=== PATIENT | female | born 2000 | race Caucasian/White ===

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

== ENCOUNTER 2025-08-24 16:58 | Inpatient (IN) ==
[2025-08-24 18:34] LABS: Hematocrit (blood only) 36.3 % (37.0-47.0); Hemoglobin 11.9 g/dL (12.0-16.0); Immature Granulocytes # (auto) 0.03 K/uL (0.01-0.20); Immature Granulocytes % (auto) 0.2 %; Mean Corpuscular Hemoglobin 29.2 pg (25.0-34.0); Mean Corpuscular Volume 89.0 fL (80.0-100.0); Platelet Count 251 K/uL (130-400); RDW Standard Deviation 42.8 fL (36.4-46.3); Red Blood Count 4.08 M/uL (4.20-5.40); White Blood Count 14.94 K/ul (4.8-10.8)
[2025-08-24 18:48] LABS: Acetaminophen < 3 ug/ml (10-30); Salicylate < 3.0 mg/dl (3.0-30)
[2025-08-24 18:51] LABS: Alanine Aminotransferase 11 U/L (7-52); Albumin Globulin Ratio 0.8 (0.9-2); Albumin Level 3.4 gm/dl (3.4-5.0); Alkaline Phosphatase 95 U/L (34-104); Anion Gap 6 (3-11); Bilirubin,Total 0.2 mg/dl (0.2-1.0); Blood Urea Nitrogen 12 mg/dl (6-23); Calcium 9.0 mg/dl (8.6-10.3); Carbon Dioxide 27 mmol/L (21-32); Chloride 103 mmol/L (98-107); Globulin 4.2 gm/dl (2.5-4.0); Glucose 80 mg/dl (70-99(Fasting)); Potassium 3.6 mmol/L (3.5-5.1); Sodium 136 mmol/L (136-145); Total Protein 7.6 gm/dl (6.0-8.3)
[2025-08-24 18:55] LABS: Pregnancy Test, Serum Negative (Negative)
[2025-08-24 19:06] LABS: Thyroid Stimulating Hormone 1.885 uIu/ml (0.300-4.500)
[2025-08-24 19:07] LABS: Appearance Urine Clear (Clear); Bacteria Urine Automated None Seen (None Seen); Cast Urine Automated 0-2 /lpf (0-2); Glucose Urine UA Negative (Negative); RBC Urine Automated 0-2 /hpf (0-2); WBC Urine Automated 0-5 /hpf (0-5)
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
[2025-08-24 20:20] LABS: Amphetamines+Metham, Urine Neg (Neg); MDMA (Ecstacy), Urine Neg (Neg); Marijuana, Urine Neg (Neg)
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
[2025-08-24] MEDS ORDERED: lamoTRIgine 100 MG TAB PO SCH (22:45)
[2025-08-24] MEDS: ARIPiprazole 15 MG TAB PO STA (23:04)
[2025-08-24] MEDS: lamoTRIgine 100 MG TAB PO STA (23:04)
[2025-08-25] MEDS: ONDANSETRON 4 MG OD TAB PO STA (02:28)
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
[2025-08-25] MEDS ORDERED: BISMUTH SUBSALICYLATE 262 MG CHEW PO PRN (07:53)
[2025-08-25] MEDS ORDERED: SODIUM CHLORIDE 0.65% NA SOLN 45 ML (OCEAN) PRN (07:53)
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
[2025-08-25] MEDS ORDERED: ARIPiprazole 15 MG TAB PO SCH (09:00)
[2025-08-25] MEDS: lamoTRIgine 25 MG TAB PO SCH (21:35)
[2025-08-26] MEDS: ARIPiprazole 15 MG TAB PO SCH ×2 (08:10→21:29)
[2025-08-26 08:39] LABS: Cholesterol 163.0 mg/dl (0-200); HDL Cholesterol 51.0 mg/dl; Triglycerides 116.0 mg/dl (0-150)
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
[2025-08-26 09:20] LABS: Hemoglobin A1C 5.7 % (4.5-5.6)
[2025-08-27] MEDS: CHOLECALCIFEROL 125 MCG (5,000 UNITS) TAB PO SCH (08:24)
[2025-08-27] MEDS: ACETAMINOPHEN 325 MG TAB PO PRN (08:24)
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
[2025-08-27] MEDS: ARIPiprazole 15 MG TAB PO SCH (21:01)
[2025-08-27] MEDS: lamoTRIgine 25 MG TAB PO SCH (21:01)
--- NOTE | 2025-08-28 15:42 | Psychiatric Progress Note ---
Date of Service August 28, 2025 Impression / Recommendations Impression SUMMER SINGH is a 25-year-old woman who currently lives in [place] in an [facility] [place] half[facility]way, has a history of ASD with intellectual disability, mood disorder, PTSD, craniofacial syndrome with a history of multiple prior psychiatric hospitalizations as well as history of self-harm, suicide attempts, and behavioral dysregulation and was admitted on 08/25/25 07:53 on a 302 involuntary commitment for aggressive behavior toward staff, self-harm and disorganization in the context of recent medication non-adherence with lamictal and medication changes. Now on 303 commitment as of 08/27/2025. Diagnostically consistent with unspecified mood disorder with differential including depression vs bipolar disorder with increased mood lability and irritability in context of recent medication non-adherence with lamictal vs exacerbation of longstanding emotional dysregulation & self-injurious and impulsive aggressive behaviors from ASD which typically worsen with limit setting vs premenstrual dysphoric disorder given report that symptoms tend to worsen prior to menses but also with evidence of increasing symptoms over multiple weeks. Also possible that stimulant addition caused worsening of behaviors though this seems less likely as methylphenidate was started in April with last dose increase in May per PDMP. Would also wonder about cramps or other physical symptoms such as constipation increasing episodes of irritability and behavioral dysregulation, especially if she struggles to identify these somatic experiences or communicate them. A: Patient is a limited historian however endorses an improvement in anxiety symptoms and resolution of SI. Continues to be disruptive at the nurses station and in public areas likely due to emotional dysregulation; likely this behavior has been chronic and is related to personality elements. Tolerating her medications well including recent initiation of clonidine and demonstrating improved sleep. Will work with her home facility to plan discharge. [facility]PR due to recent aggression and behavioral dysregulation Overall, I spent a total of 45 minutes on this case including meeting with the patient, reviewing the chart, nursing report, multidisciplinary team meeting, orders, and documentation. (1) Aggressive behavior: (2) Suicidal ideation: (3) Mood disorder: (4) Autism spectrum disorder with accompanying intellectual disability without language impairment, requiring support: (5) Trauma and stressor-related disorder: Plan 08/28/2025: Continue medications and treatment plan 08/27/2025: -303 commitment granted -Start metformin ER 500mg daily with dinner 08/26/2025: -Start Trileptal 300mg HS -Start Vit D -303 commitment hearing tomorrow 08/25/2025: The patient was [facility] ([facility] inpatient mental health unit) on q15 min checks (behavioral with suicide precautions) for safety. The patient will participate in group, recreational, and milieu therapies and will be offered additional individual and family sessions as clinically appropriate. -Start clonidine 0.1mg HS -Continue abilify 30mg daily -Continue lamictal but now at 25mg HS due to recent non-adherence of unknown duration but seems to be for >4 days based on report of many pills hoarded -Olanzapine 5mg BID po prn for agitation -Fasting lipid panel, HbA1c, Vit D tomorrow AM -Monitor for somatic symptoms of constipation, cramping, pain and offer prn medications as neded -Given the holiday we may need to pursue 303 commitment earlier than usual if [facility] offices will be closed following . -Requesting records from outpatient psychiatry office to review past mood stabilizer and SSRI trials as possible fluoxetine could help with PMDD and would prefer to consider alternative to lamictal given high risks with non-adherence or intermittent adherence -Suicide and homicide precautions -SW to gather collateral and clarify her outpatient supports Inventory Assets Strengths: supportive relationships, resilient Needs: safety and stabilization, medication adjustment, additional coping skills, increased outpatient services Suicide Risk Level Suicide Risk Level: Moderate (q15 min suicide checks) (recent self-harm and escalating behavioral dysregulation but showing slightly better emotional regulation, currently denies SI and reports feeling safe in the hospital and states comfort with asking staff for support if needed) Risk Factors Assessment Male: No : Yes Do You Have Access To A Gun?: No Health Problems: No Mental Health Diagnoses: Yes Substance Use Disorders: No Previous Attempt: Yes Previous Psychiatric Hospitalization: Yes Protective Factors Assessment Employed: No Supportive Family: Yes Interval History Identifying Information SUMMER SINGH is a 25-year-old woman who currently lives in [place] in an [facility] [place] half-way, has a history of ASD with intellectual disability, mood disorder, PTSD, craniofacial syndrome with a history of multiple prior psychiatric hospitalizations as well as history of self-harm, suicide attempts, and behavioral dysregulation and was admitted on 08/25/25 07:53 on a 302 involuntary commitment for aggressive behavior toward staff, self-harm and disorganization in the context of recent medication non-adherence with lamictal and medication changes. Chief Complaint emotional dysregulation Review of Systems Sleep Information Total Hours of Sleep: 6 Meal Information Percent Meal Consumed - Breakfast: 100 Percent Meal Consumed - Lunch: 75 Percent Meal Consumed - Dinner: 80 Subjective Subjective Patient was seen & assessed and interval progress reviewed with treatment team nursing and social work On interview patient is tangential and requires redirection. Initially reluctant to speak to this policy writer typist due to fears of racism. Recounts being upset when playing video games and her Xbox crashed. She was frustrated and had an argument with the half-way staff. She kicked the acuna and got a knife from the kitchen which broke and she accidentally cut herself and was bleeding. Reports trying to clean up the mess and frantically get help. Unable to tell me further of what brought her to the hospital. Currently denies SI or thoughts of self-harm. Reports sleeping well and has a regular bowel movement. Endorses less anxious ruminations and feels more calm. Tolerating clonidine well and rates it as effective. Reports some somatic symptoms of a stabbing pain in her chest and low back pain which has both been chronic. Reports a plan to return to her half-way. Physical Exam Mental Examination Appearance: Disheveled Eye Contact: Maintains Eye Contact Motor Behavior: Unremarkable Speech: Tangential, Loud and Circumstantial Mood: Irritable Affect: Irritable Thought Process: Intact Thought Content: Tangential Hallucinations: None Insight: Poor Judgement: Poor Vital Signs (Past 24 Hours) Last Vital Signs Temp 35.5 C L 08/28/25 06:22 Pulse 59 L 08/28/25 06:22 Resp 19 08/28/25 06:22 BP 99/68 L 08/28/25 06:22 Pulse Ox 96 08/28/25 06:22 O2 Del Method Room Air 08/28/25 06:22 Results & Data ([facility]) Current Inpatient Medications Current Inpatient Medications: Current Inpatient Medications Acetaminophen (Acetaminophen 325 Mg Tab) 650 mg PO Q4H PRN PRN Reason: Headache or Minor Fever Stop: 09/24/25 07:52 Last Admin: 08/27/25 08:24 Dose: 650 mg Al Hydrox/Mg Hydrox/Simethicone (Aluminum/Magnesium Susp 30 Ml Udc) 30 ml PO Q4H PRN PRN Reason: GI Upset Stop: 09/24/25 07:52 Aripiprazole (Aripiprazole 15 Mg Tab) 30 mg PO PM PALAK Stop: 09/26/25 20:59 Last Admin: 08/27/25 21:01 Dose: 30 mg Bismuth Subsalicylate (Bismuth Subsalicylate 262 Mg Chew) 2 tab PO Q30M PRN PRN Reason: Loose Stool/Diarrhea Stop: 09/24/25 07:52 Clonidine HCl (Clonidine Hcl 0.1 Mg Tab) 0.1 mg PO HS PALAK Stop: 09/24/25 21:59 Last Admin: 08/27/25 21:01 Dose: 0.1 mg Hydroxyzine HCl (Hydroxyzine Hcl 25 Mg Tab) 50 mg PO HSZ PRN PRN Reason: Insomnia Stop: 09/24/25 07:52 Hydroxyzine HCl (Hydroxyzine Hcl 25 Mg Tab) 25 mg PO Q4H PRN PRN Reason: Anxiety Stop: 09/24/25 07:52 Last Admin: 08/28/25 12:35 Dose: 25 mg Lamotrigine (Lamotrigine 25 Mg Tab) 25 mg PO PM PALAK; Protocol Stop: 09/26/25 20:59 Last Admin: 08/27/25 21:01 Dose: 25 mg Magnesium Hydroxide (Magnesium Hydroxide Susp 30 Ml Udc) 30 ml PO DAILY PRN PRN Reason: Constipation Stop: 09/24/25 07:52 Metformin HCl (Metformin Hcl Er 500 Mg Tabcr) 500 mg PO DAILYBD PALAK Stop: 09/26/25 17:14 Last Admin: 08/27/25 17:27 Dose: 500 mg Miscellaneous (Ethynodiol Diac-Eth Estradiol (Kelnor)--Non-Formulary Medication) 1 each PO DAILY PALAK Stop: 09/27/25 08:59 Last Admin: 08/28/25 08:31 Dose: 1 each Olanzapine (Olanzapine 5 Mg Tablet) 5 mg PO BID PRN PRN Reason: Agitation Stop: 09/24/25 08:59 Oxcarbazepine (Oxcarbazepine 150 Mg Tablet) 300 mg PO PM PALAK Stop: 09/26/25 20:59 Last Admin: 08/27/25 21:00 Dose: 300 mg Sodium Chloride (Sodium Chloride 0.65% Na Soln 45 Ml ([place])) 1 - 2 sprays NA PRN PRN PRN Reason: Nasal Dryness/Congestion Stop: 09/24/25 07:52 Vitamin D (Cholecalciferol 125 Mcg (5,000 Units) Tab) 125 mcg PO QAM PALAK Stop: 09/26/25 08:59 Last Admin: 08/28/25 08:30 Dose: 125 mcg Mental Health & Subst Abuse Tx Psychiatrist Name of Psychiatrist: [address], [place] [address] Psychiatrist's Date Of Appointment With Psychiatric Provider: 11/05/25 Time of Appointment with Psychiatrist: 3pm Psychiatric Appointment Comment: In person Therapist Name of Therapist: Silviano Rodriguez Therapist's Date of Therapist Appointment: 09/04/25 Time of Therapist Appointment: 11AM Therapy Appointment Comment: In Person. [address], [place] [address]
--- NOTE | 2025-08-29 17:20 | Psychiatric Progress Note ---
Date of Service August 29, 2025 Impression / Recommendations Impression SUMMER SINGH is a 25-year-old woman who currently lives in [place] in an [facility], has a history of ASD with intellectual disability, mood disorder, PTSD, craniofacial syndrome with a history of multiple prior psychiatric hospitalizations as well as history of self-harm, suicide attempts, and behavioral dysregulation and was admitted on 08/25/25 07:53 on a 302 involuntary commitment for aggressive behavior toward staff, self-harm and disorganization in the context of recent medication non-adherence with lamictal and medication changes. Now on 303 commitment as of 08/27/2025. Diagnostically consistent with unspecified mood disorder with differential including depression vs bipolar disorder with increased mood lability and irritability in context of recent medication non-adherence with lamictal vs exacerbation of longstanding emotional dysregulation & self-injurious and impulsive aggressive behaviors from ASD which typically worsen with limit setting vs premenstrual dysphoric disorder given report that symptoms tend to worsen prior to menses but also with evidence of increasing symptoms over multiple weeks. Also possible that stimulant addition caused worsening of behaviors though this seems less likely as methylphenidate was started in April with last dose increase in May per PDMP. Would also wonder about cramps or other physical symptoms such as constipation increasing episodes of irritability and behavioral dysregulation, especially if she struggles to identify these somatic experiences or communicate them. A: Patient presents some irritability and agitation overnight requiring PRNs. Continues to be disruptive likely due to emotional dysregulation. Tolerating her medications well and demonstrating improved sleep and anxiety. Will work with home facility to plan transfer. [facility] due to recent aggression and behavioral dysregulation Overall, I spent a total of 25 minutes on this case including meeting with the patient, reviewing the chart, nursing report, multidisciplinary team meeting, orders, and documentation. (1) Aggressive behavior: (2) Suicidal ideation: (3) Mood disorder: (4) Autism spectrum disorder with accompanying intellectual disability without language impairment, requiring support: (5) Trauma and stressor-related disorder: Plan 08/29/2025: Continue medications and treatment plan 08/28/2025: Continue medications and treatment plan 08/27/2025: -303 commitment granted -Start metformin ER 500mg daily with dinner 08/26/2025: -Start Trileptal 300mg HS -Start Vit D -303 commitment hearing tomorrow 08/25/2025: The patient was admitted to the [facility] ([facility] inpatient mental health unit) on q15 min checks (behavioral with suicide precautions) for safety. The patient will participate in group, recreational, and milieu therapies and will be offered additional individual and family sessions as clinically appropriate. -Start clonidine 0.1mg HS -Continue abilify 30mg daily -Continue lamictal but now at 25mg HS due to recent non-adherence of unknown duration but seems to be for >4 days based on report of many pills hoarded -Olanzapine 5mg BID po prn for agitation -Fasting lipid panel, HbA1c, Vit D tomorrow AM -Monitor for somatic symptoms of constipation, cramping, pain and offer prn medications as neded -Given the holiday we may need to pursue 303 commitment earlier than usual if [facility] offices will be closed following . -Requesting records from outpatient psychiatry office to review past mood stabilizer and SSRI trials as possible fluoxetine could help with PMDD and would prefer to consider alternative to lamictal given high risks with non-adherence or intermittent adherence -Suicide and homicide precautions -SW to gather collateral and clarify her outpatient supports Inventory Assets Strengths: supportive relationships, resilient Needs: safety and stabilization, medication adjustment, additional coping skills, increased outpatient services Suicide Risk Level Suicide Risk Level: Moderate (q15 min suicide checks) (recent self-harm and escalating behavioral dysregulation but showing slightly better emotional regulation, currently denies SI and reports feeling safe in the hospital and states comfort with asking staff for support if needed) Risk Factors Assessment Male: No : Yes Do You Have Access To A Gun?: No Health Problems: No Mental Health Diagnoses: Yes Substance Use Disorders: No Previous Attempt: Yes Previous Psychiatric Hospitalization: Yes Protective Factors Assessment Employed: No Supportive Family: Yes Interval History Identifying Information SUMMER SINGH is a 25-year-old woman who currently lives in [place] in an [facility], has a history of ASD with intellectual disability, mood disorder, PTSD, craniofacial syndrome with a history of multiple prior psychiatric hospitalizations as well as history of self-harm, suicide attempts, and behavioral dysregulation and was admitted on 08/25/25 07:53 on a 302 involuntary commitment for aggressive behavior toward staff, self-harm and disorganization in the context of recent medication non-adherence with lamictal and medication changes. Chief Complaint Anxiety, behavioral disturbance Review of Systems Sleep Information Total Hours of Sleep: 9 Meal Information Percent Meal Consumed - Breakfast: 75 Percent Meal Consumed - Lunch: 75 Percent Meal Consumed - Dinner: 100 Subjective Subjective Patient was seen & assessed and interval progress reviewed with treatment team nursing and social work. Overnight rated mood 8 out of 10. Has been attending groups. Was anxious and agitated after difficult phone call with her mother last night, disruptive on the unit, and received as needed Vistaril which was effective. When seen today she reports doing well and has been journaling. Denies SI and appears future oriented. Anxious about potential discharge and feels she is not prepared. Having regular bowel movement. Discussing how she has met many people from around the world playing [employer]. Physical Exam Mental Examination Appearance: Disheveled Eye Contact: Maintains Eye Contact Motor Behavior: Unremarkable Speech: Tangential, Loud and Circumstantial Mood: Irritable Affect: Irritable Thought Process: Intact Thought Content: Tangential Hallucinations: None Insight: Poor Judgement: Poor Vital Signs (Past 24 Hours) Last Vital Signs Temp 36.3 C L 08/29/25 06:31 Pulse 54 L 08/29/25 06:31 Resp 16 08/29/25 06:31 BP 102/64 08/29/25 06:31 Pulse Ox 96 08/28/25 06:22 O2 Del Method Room Air 08/28/25 06:22 Results & Data ([facility]) Current Inpatient Medications Current Inpatient Medications: Current Inpatient Medications Acetaminophen (Acetaminophen 325 Mg Tab) 650 mg PO Q4H PRN PRN Reason: Headache or Minor Fever Stop: 09/24/25 07:52 Last Admin: 08/27/25 08:24 Dose: 650 mg Al Hydrox/Mg Hydrox/Simethicone (Aluminum/Magnesium Susp 30 Ml Udc) 30 ml PO Q4H PRN PRN Reason: GI Upset Stop: 09/24/25 07:52 Aripiprazole (Aripiprazole 15 Mg Tab) 30 mg PO PM PALAK Stop: 09/26/25 20:59 Last Admin: 08/28/25 21:08 Dose: 30 mg Bismuth Subsalicylate (Bismuth Subsalicylate 262 Mg Chew) 2 tab PO Q30M PRN PRN Reason: Loose Stool/Diarrhea Stop: 09/24/25 07:52 Clonidine HCl (Clonidine Hcl 0.1 Mg Tab) 0.1 mg PO HS PALAK Stop: 09/24/25 21:59 Last Admin: 08/28/25 21:09 Dose: 0.1 mg Hydroxyzine HCl (Hydroxyzine Hcl 25 Mg Tab) 50 mg PO HSZ PRN PRN Reason: Insomnia Stop: 09/24/25 07:52 Hydroxyzine HCl (Hydroxyzine Hcl 25 Mg Tab) 25 mg PO Q4H PRN PRN Reason: Anxiety Stop: 09/24/25 07:52 Last Admin: 08/28/25 12:35 Dose: 25 mg Lamotrigine (Lamotrigine 25 Mg Tab) 25 mg PO PM PALAK; Protocol Stop: 09/26/25 20:59 Last Admin: 08/28/25 21:09 Dose: 25 mg Magnesium Hydroxide (Magnesium Hydroxide Susp 30 Ml Udc) 30 ml PO DAILY PRN PRN Reason: Constipation Stop: 09/24/25 07:52 Metformin HCl (Metformin Hcl Er 500 Mg Tabcr) 500 mg PO DAILYBD PALAK Stop: 09/26/25 17:14 Last Admin: 08/29/25 17:13 Dose: 500 mg Miscellaneous (Ethynodiol Diac-Eth Estradiol ([place])--Non-Formulary Medication) 1 each PO DAILY PALAK Stop: 09/27/25 08:59 Last Admin: 08/29/25 09:08 Dose: 1 each Olanzapine (Olanzapine 5 Mg Tablet) 5 mg PO BID PRN PRN Reason: Agitation Stop: 09/24/25 08:59 Oxcarbazepine (Oxcarbazepine 150 Mg Tablet) 300 mg PO PM PALAK Stop: 09/26/25 20:59 Last Admin: 08/28/25 21:09 Dose: 300 mg Sodium Chloride (Sodium Chloride 0.65% Na Soln 45 Ml ([place])) 1 - 2 sprays NA PRN PRN PRN Reason: Nasal Dryness/Congestion Stop: 09/24/25 07:52 Vitamin D (Cholecalciferol 125 Mcg (5,000 Units) Tab) 125 mcg PO QAM PALAK Stop: 09/26/25 08:59 Last Admin: 08/29/25 09:08 Dose: 125 mcg Mental Health & Subst Abuse Tx Psychiatrist Name of Psychiatrist: [address] [address], [place] [address] Psychiatrist's Date Of Appointment With Psychiatric Provider: 2/4/26 Time of Appointment with Psychiatrist: 3pm Psychiatric Appointment Comment: In person Therapist Name of Therapist: Silviano Rodriguez Therapist's Date of Therapist Appointment: 09/04/25 Time of Therapist Appointment: 11AM Therapy Appointment Comment: In Person. [address] [place] [facility] [address]
--- NOTE | 2025-08-30 12:53 | Psychiatric Progress Note ---
Date of Service August 30, 2025 Impression / Recommendations Impression SUMMER SINGH is a 25-year-old woman who currently lives in [place] in an [facility] correction, has a history of ASD with intellectual disability, mood disorder, PTSD, craniofacial syndrome with a history of multiple prior psychiatric hospitalizations as well as history of self-harm, suicide attempts, and behavioral dysregulation and was admitted on 08/25/25 07:53 on a 302 involuntary commitment for aggressive behavior toward staff, self-harm and disorganization in the context of recent medication non-adherence with lamictal and medication changes. Now on 303 commitment as of 08/27/2025. Diagnostically consistent with unspecified mood disorder with differential including depression vs bipolar disorder with increased mood lability and irritability in context of recent medication non-adherence with lamictal vs exacerbation of longstanding emotional dysregulation & self-injurious and impulsive aggressive behaviors from ASD which typically worsen with limit setting vs premenstrual dysphoric disorder given report that symptoms tend to worsen prior to menses but also with evidence of increasing symptoms over multiple weeks. Also possible that stimulant addition caused worsening of behaviors though this seems less likely as methylphenidate was started in April with last dose increase in May per PDMP. Would also wonder about cramps or other physical symptoms such as constipation increasing episodes of irritability and behavioral dysregulation, especially if she struggles to identify these somatic experiences or communicate them. A: Patient presents a brief periods of emotional dysregulation and requires reassurance. Is tolerating the medications well with good sleep. Working with home facility plan transfer. [facility] due to recent aggression and behavioral dysregulation Overall, I spent a total of 25 minutes on this case including meeting with the patient, reviewing the chart, nursing report, multidisciplinary team meeting, orders, and documentation. (1) Aggressive behavior: (2) Suicidal ideation: (3) Mood disorder: (4) Autism spectrum disorder with accompanying intellectual disability without language impairment, requiring support: (5) Trauma and stressor-related disorder: Plan 08/30/2025: Continue medications and treatment plan 08/29/2025: Continue medications and treatment plan 08/28/2025: Continue medications and treatment plan 08/27/2025: -303 commitment granted -Start metformin ER 500mg daily with dinner 08/26/2025: -Start Trileptal 300mg HS -Start Vit D -303 commitment hearing tomorrow 08/25/2025: The patient was admitted to the [facility] ([facility] inpatient mental health unit) on q15 min checks (behavioral with suicide precautions) for safety. The patient will participate in group, recreational, and milieu therapies and will be offered additional individual and family sessions as clinically appropriate. -Start clonidine 0.1mg HS -Continue abilify 30mg daily -Continue lamictal but now at 25mg HS due to recent non-adherence of unknown duration but seems to be for >4 days based on report of many pills hoarded -Olanzapine 5mg BID po prn for agitation -Fasting lipid panel, HbA1c, Vit D tomorrow AM -Monitor for somatic symptoms of constipation, cramping, pain and offer prn medications as neded -Given the holiday we may need to pursue 303 commitment earlier than usual if [facility] offices will be closed following . -Requesting records from outpatient psychiatry office to review past mood stabilizer and SSRI trials as possible fluoxetine could help with PMDD and would prefer to consider alternative to lamictal given high risks with non-adherence or intermittent adherence -Suicide and homicide precautions -SW to gather collateral and clarify her outpatient supports Inventory Assets Strengths: supportive relationships, resilient Needs: safety and stabilization, medication adjustment, additional coping skills, increased outpatient services Suicide Risk Level Suicide Risk Level: Moderate (q15 min suicide checks) (recent self-harm and escalating behavioral dysregulation but showing slightly better emotional regulation, currently denies SI and reports feeling safe in the hospital and states comfort with asking staff for support if needed) Risk Factors Assessment Male: No : Yes Do You Have Access To A Gun?: No Health Problems: No Mental Health Diagnoses: Yes Substance Use Disorders: No Previous Attempt: Yes Previous Psychiatric Hospitalization: Yes Protective Factors Assessment Employed: No Supportive Family: Yes Interval History Identifying Information SUMMER SINGH is a 25-year-old woman who currently lives in [place] in an [facility] correction, has a history of ASD with intellectual disability, mood disorder, PTSD, craniofacial syndrome with a history of multiple prior psychiatric ho spitalizations as well as history of self-harm, suicide attempts, and behavioral dysregulation and was admitted on 08/25/25 07:53 on a 302 involuntary commitment for aggressive behavior toward staff, self-harm and disorganization in the context of recent medication non-adherence with lamictal and medication changes. Chief Complaint Emotional dysregulation Review of Systems Sleep Information Total Hours of Sleep: 7 Sleep Comments: Awoke early Meal Information Percent Meal Consumed - Breakfast: 0 Percent Meal Consumed - Lunch: 75 Percent Meal Consumed - Dinner: 100 Subjective Subjective Patient was seen & assessed and interval progress reviewed with treatment team nursing and social work Staff noted patient has been needy and refused breakfast as she did not order the correct items. She denies SI and HI. Reports fair sleep. No GI complaints. Has been engaging in groups. Reports feeling bored. Enjoys the milieu and talking to people Physical Exam Mental Examination Appearance: Disheveled Eye Contact: Maintains Eye Contact Motor Behavior: Unremarkable Speech: Circumstantial Mood: Euthymic and Calm Affect: Congruent Thought Process: Intact Thought Content: Tangential Hallucinations: None Insight: Poor Judgement: Poor Vital Signs (Past 24 Hours) Last Vital Signs Temp 36.8 C 08/30/25 05:26 Pulse 68 08/30/25 05:28 Resp 20 08/30/25 05:26 BP 89/52 L 08/30/25 05:28 Pulse Ox 99 08/30/25 05:26 O2 Del Method Room Air 08/30/25 05:26 Results & Data ([facility]) Current Inpatient Medications Current Inpatient Medications: Current Inpatient Medications Acetaminophen (Acetaminophen 325 Mg Tab) 650 mg PO Q4H PRN PRN Reason: Headache or Minor Fever Stop: 09/24/25 07:52 Last Admin: 08/27/25 08:24 Dose: 650 mg Al Hydrox/Mg Hydrox/Simethicone (Aluminum/Magnesium Susp 30 Ml Udc) 30 ml PO Q4H PRN PRN Reason: GI Upset Stop: 09/24/25 07:52 Aripiprazole (Aripiprazole 15 Mg Tab) 30 mg PO PM PALAK Stop: 09/26/25 20:59 Last Admin: 08/29/25 20:56 Dose: 30 mg Bismuth Subsalicylate (Bismuth Subsalicylate 262 Mg Chew) 2 tab PO Q30M PRN PRN Reason: Loose Stool/Diarrhea Stop: 09/24/25 07:52 Clonidine HCl (Clonidine Hcl 0.1 Mg Tab) 0.1 mg PO HS PALAK Stop: 09/24/25 21:59 Last Admin: 08/29/25 20:57 Dose: 0.1 mg Hydroxyzine HCl (Hydroxyzine Hcl 25 Mg Tab) 50 mg PO HSZ PRN PRN Reason: Insomnia Stop: 09/24/25 07:52 Hydroxyzine HCl (Hydroxyzine Hcl 25 Mg Tab) 25 mg PO Q4H PRN PRN Reason: Anxiety Stop: 09/24/25 07:52 Last Admin: 08/28/25 12:35 Dose: 25 mg Lamotrigine (Lamotrigine 25 Mg Tab) 25 mg PO PM PALAK; Protocol Stop: 09/26/25 20:59 Last Admin: 08/29/25 20:57 Dose: 25 mg Magnesium Hydroxide (Magnesium Hydroxide Susp 30 Ml Udc) 30 ml PO DAILY PRN PRN Reason: Constipation Stop: 09/24/25 07:52 Metformin HCl (Metformin Hcl Er 500 Mg Tabcr) 500 mg PO DAILYBD PALAK Stop: 09/26/25 17:14 Last Admin: 08/29/25 17:13 Dose: 500 mg Miscellaneous (Ethynodiol Diac-Eth Estradiol (K[place])--Non-Formulary Medication) 1 each PO DAILY PALAK Stop: 09/27/25 08:59 Last Admin: 08/30/25 09:12 Dose: 1 each Olanzapine (Olanzapine 5 Mg Tablet) 5 mg PO BID PRN PRN Reason: Agitation Stop: 09/24/25 08:59 Oxcarbazepine (Oxcarbazepine 150 Mg Tablet) 300 mg PO PM PALAK Stop: 09/26/25 20:59 Last Admin: 08/29/25 20:56 Dose: 300 mg Sodium Chloride (Sodium Chloride 0.65% Na Soln 45 Ml ([place])) 1 - 2 sprays NA PRN PRN PRN Reason: Nasal Dryness/Congestion Stop: 09/24/25 07:52 Vitamin D (Cholecalciferol 125 Mcg (5,000 Units) Tab) 125 mcg PO QAM PALAK Stop: 09/26/25 08:59 Last Admin: 08/30/25 09:13 Dose: 125 mcg Mental Health & Subst Abuse Tx Psychiatrist Name of Psychiatrist: [address], [place] [address] Psychiatrist's Date Of Appointment With Psychiatric Provider: 11/05/25 Time of Appointment with Psychiatrist: 3pm Psychiatric Appointment Comment: In person Therapist Name of Therapist: Silviano Rodriguez Therapist's Date of Therapist Appointment: 09/04/25 Time of Therapist Appointment: 11AM Therapy Appointment Comment: In Person. [address], [place] [address]
--- NOTE | 2025-08-31 13:06 | Psychiatric Progress Note ---
Date of Service August 31, 2025 Impression / Recommendations Impression SUMMER SINGH is a 25-year-old woman who currently lives in [place] in an [facility] longterm, has a history of ASD with intellectual disability, mood disorder, PTSD, craniofacial syndrome with a history of multiple prior psychiatric hospitalizations as well as history of self-harm, suicide attempts, and behavioral dysregulation and was admitted on 08/25/25 07:53 on a 302 involuntary commitment for aggressive behavior toward staff, self-harm and disorganization in the context of recent medication non-adherence with lamictal and medication changes. Now on 303 commitment as of 08/27/2025. Diagnostically consistent with unspecified mood disorder with differential including depression vs bipolar disorder with increased mood lability and irritability in context of recent medication non-adherence with lamictal vs exacerbation of longstanding emotional dysregulation & self-injurious and impulsive aggressive behaviors from ASD which typically worsen with limit setting vs premenstrual dysphoric disorder given report that symptoms tend to worsen prior to menses but also with evidence of increasing symptoms over multiple weeks. Also possible that stimulant addition caused worsening of behaviors though this seems less likely as methylphenidate was started in April with last dose increase in May per PDMP. Would also wonder about cramps or other physical symptoms such as constipation increasing episodes of irritability and behavioral dysregulation, especially if she struggles to identify these somatic experiences or communicate them. A: Patient presents a brief periods of emotional dysregulation and requires reassurance. Is tolerating the medications well with good sleep. Working with home facility plan transfer. [facility] due to recent aggression and behavioral dysregulation Overall, I spent a total of 25 minutes on this case including meeting with the patient, reviewing the chart, nursing report, multidisciplinary team meeting, orders, and documentation. (1) Aggressive behavior: (2) Suicidal ideation: (3) Mood disorder: (4) Autism spectrum disorder with accompanying intellectual disability without language impairment, requiring support: (5) Trauma and stressor-related disorder: Plan 08/31/2025: Continue medications and treatment plan 08/30/2025: Continue medications and treatment plan 08/29/2025: Continue medications and treatment plan 08/28/2025: Continue medications and treatment plan 08/27/2025: -303 commitment granted -Start metformin ER 500mg daily with dinner 08/26/2025: -Start Trileptal 300mg HS -Start Vit D -303 commitment hearing tomorrow 08/25/2025: The patient was admitted to the [facility] on q15 min checks (behavioral with suicide precautions) for safety. The patient will participate in group, recreational, and milieu therapies and will be offered additional individual and family sessions as clinically appropriate. -Start clonidine 0.1mg HS -Continue abilify 30mg daily -Continue lamictal but now at 25mg HS due to recent non-adherence of unknown duration but seems to be for >4 days based on report of many pills hoarded -Olanzapine 5mg BID po prn for agitation -Fasting lipid panel, HbA1c, Vit D tomorrow AM -Monitor for somatic symptoms of constipation, cramping, pain and offer prn medications as neded -Given the holiday we may need to pursue 303 commitment earlier than usual if [facility] offices will be closed following . -Requesting records from outpatient psychiatry office to review past mood stabilizer and SSRI trials as possible fluoxetine could help with PMDD and would prefer to consider alternative to lamictal given high risks with non-adherence or intermittent adherence -Suicide and homicide precautions -SW to gather collateral and clarify her outpatient supports Inventory Assets Strengths: supportive relationships, resilient Needs: safety and stabilization, medication adjustment, additional coping skills, increased outpatient services Suicide Risk Level Suicide Risk Level: Moderate (q15 min suicide checks) (recent self-harm and escalating behavioral dysregulation but showing slightly better emotional regulation, currently denies SI and reports feeling safe in the hospital and states comfort with asking staff for support if needed) Risk Factors Assessment Male: No : Yes Do You Have Access To A Gun?: No Health Problems: No Mental Health Diagnoses: Yes Substance Use Disorders: No Previous Attempt: Yes Previous Psychiatric Hospitalization: Yes Protective Factors Assessment Employed: No Supportive Family: Yes Interval History Identifying Information SUMMER SINGH is a 25-year-old woman who currently lives in [place] in an [facility] longterm, has a history of ASD with intellectual disability, mood disorder, PTSD, craniofacial syndrome with a history of multiple prior psychiatric hospitalizations as well as history of self-harm, suicide attempts, and behavioral dysregulation and was admitted on 08/25/25 07:53 on a 302 involuntary commitment for aggressive behavior toward staff, self-harm and disorganization in the context of recent medication non-adherence with lamictal and medication changes. Chief Complaint Anxiety, emotional dysregulation Review of Systems Sleep Information Total Hours of Sleep: 8 Sleep Comments: Awoke early Meal Information Percent Meal Consumed - Breakfast: 50 Percent Meal Consumed - Lunch: 75 Percent Meal Consumed - Dinner: 65 Subjective Subjective Patient was seen & assessed and interval progress reviewed with treatment team nursing and social work Patient reports doing well. Had a bowel movement. Reports groups have been helpful. Denies SI. Was previously on lamotrigine 200 in the morning and 400 at bedtime and says that it was helpful. No further concerns today. Physical Exam Mental Examination Appearance: Disheveled Eye Contact: Maintains Eye Contact Motor Behavior: Unremarkable Speech: Circumstantial Mood: Euthymic and Calm Affect: Congruent Thought Process: Intact Thought Content: Tangential Hallucinations: None Insight: Poor Judgement: Poor Vital Signs (Past 24 Hours) Last Vital Signs Temp 36.4 C L 08/31/25 06:23 Pulse 91 H 08/31/25 06:24 Resp 16 08/31/25 06:23 BP 116/74 08/31/25 06:24 Pulse Ox 99 08/30/25 05:26 O2 Del Method Room Air 08/30/25 05:26 Results & Data ([facility]) Current Inpatient Medications Current Inpatient Medications: Current Inpatient Medications Acetaminophen (Acetaminophen 325 Mg Tab) 650 mg PO Q4H PRN PRN Reason: Headache or Minor Fever Stop: 09/24/25 07:52 Last Admin: 08/27/25 08:24 Dose: 650 mg Al Hydrox/Mg Hydrox/Simethicone (Aluminum/Magnesium Susp 30 Ml Udc) 30 ml PO Q4H PRN PRN Reason: GI Upset Stop: 09/24/25 07:52 Aripiprazole (Aripiprazole 15 Mg Tab) 30 mg PO PM PALAK Stop: 09/26/25 20:59 Last Admin: 08/30/25 21:00 Dose: 30 mg Bismuth Subsalicylate (Bismuth Subsalicylate 262 Mg Chew) 2 tab PO Q30M PRN PRN Reason: Loose Stool/Diarrhea Stop: 09/24/25 07:52 Clonidine HCl (Clonidine Hcl 0.1 Mg Tab) 0.1 mg PO HS PALAK Stop: 09/24/25 21:59 Last Admin: 08/30/25 21:00 Dose: 0.1 mg Hydroxyzine HCl (Hydroxyzine Hcl 25 Mg Tab) 50 mg PO HSZ PRN PRN Reason: Insomnia Stop: 09/24/25 07:52 Hydroxyzine HCl (Hydroxyzine Hcl 25 Mg Tab) 25 mg PO Q4H PRN PRN Reason: Anxiety Stop: 09/24/25 07:52 Last Admin: 08/28/25 12:35 Dose: 25 mg Lamotrigine (Lamotrigine 25 Mg Tab) 25 mg PO PM PALAK; Protocol Stop: 09/26/25 20:59 Last Admin: 08/30/25 21:00 Dose: 25 mg Magnesium Hydroxide (Magnesium Hydroxide Susp 30 Ml Udc) 30 ml PO DAILY PRN PRN Reason: Constipation Stop: 09/24/25 07:52 Metformin HCl (Metformin Hcl Er 500 Mg Tabcr) 500 mg PO DAILYBD PALAK Stop: 09/26/25 17:14 Last Admin: 08/30/25 17:10 Dose: 500 mg Miscellaneous (Ethynodiol Diac-Eth Estradiol ([place])--Non-Formulary Medication) 1 each PO DAILY PALAK Stop: 09/27/25 08:59 Last Admin: 08/31/25 09:13 Dose: 1 each Olanzapine (Olanzapine 5 Mg Tablet) 5 mg PO BID PRN PRN Reason: Agitation Stop: 09/24/25 08:59 Oxcarbazepine (Oxcarbazepine 150 Mg Tablet) 300 mg PO PM PALAK Stop: 09/26/25 20:59 Last Admin: 08/30/25 21:01 Dose: 300 mg Sodium Chloride (Sodium Chloride 0.65% Na Soln 45 Ml ([place])) 1 - 2 sprays NA PRN PRN PRN Reason: Nasal Dryness/Congestion Stop: 09/24/25 07:52 Vitamin D (Cholecalciferol 125 Mcg (5,000 Units) Tab) 125 mcg PO QAM PALKA Stop: 09/26/25 08:59 Last Admin: 08/31/25 09:13 Dose: 125 mcg Mental Health & Subst Abuse Tx Psychiatrist Name of Psychiatrist: [address], [place] [address] Psychiatrist's Date Of Appointment With Psychiatric Provider: 11/05/25 Time of Appointment with Psychiatrist: 3pm Psychiatric Appointment Comment: In person Therapist Name of Therapist: Don Page Therapist's Date of Therapist Appointment: 09/04/25 Time of Therapist Appointment: 11AM Therapy Appointment Comment: In Person. [address], [place] [address]
[2025-09-01] MEDS: MAGNESIUM HYDROXIDE SUSP 30 ML UDC PO PRN (10:14)
[2025-09-01] MEDS: ALUMINUM/MAGNESIUM SUSP 30 ML UDC PO PRN (12:08)
--- NOTE | 2025-09-01 12:47 | Psychiatric Progress Note ---
Date of Service September 01, 2025 Impression / Recommendations Impression SUMMER SINGH is a 25-year-old woman who currently lives in [place] in an [facility] retirement, has a history of ASD with intellectual disability, mood disorder, PTSD, craniofacial syndrome with a history of multiple prior psychiatric hospitalizations as well as history of self-harm, suicide attempts, and behavioral dysregulation and was admitted on 08/25/25 07:53 on a 302 involuntary commitment for aggressive behavior toward staff, self-harm and disorganization in the context of recent medication non-adherence with lamictal and medication changes. Now on 303 commitment as of 08/27/2025. Diagnostically consistent with unspecified mood disorder with differential including depression vs bipolar disorder with increased mood lability and irritability in context of recent medication non-adherence with lamictal vs exacerbation of longstanding emotional dysregulation & self-injurious and impulsive aggressive behaviors from ASD which typically worsen with limit setting vs premenstrual dysphoric disorder given report that symptoms tend to worsen prior to menses but also with evidence of increasing symptoms over multiple weeks. Also possible that stimulant addition caused worsening of behaviors though this seems less likely as methylphenidate was started in April with last dose increase in May per PDMP. Would also wonder about cramps or other physical symptoms such as constipation increasing episodes of irritability and behavioral dysregulation, especially if she struggles to identify these somatic experiences or communicate them. A: Patient presents a brief periods of emotional dysregulation and requires reassurance. Is tolerating the medications well with good sleep. Working with home facility plan transfer. Discussed potential challenges of returning back to her facility. Support meeting scheduled for today. MNPR due to recent aggression and behavioral dysregulation Overall, I spent a total of 25 minutes on this case including meeting with the patient, reviewing the chart, nursing report, multidisciplinary team meeting, orders, and documentation. (1) Aggressive behavior: (2) Suicidal ideation: (3) Mood disorder: (4) Autism spectrum disorder with accompanying intellectual disability without language impairment, requiring support: (5) Trauma and stressor-related disorder: Plan 09/01/2025: Continue medications and treatment plan 08/31/2025: Continue medications and treatment plan 08/30/2025: Continue medications and treatment plan 08/29/2025: Continue medications and treatment plan 08/28/2025: Continue medications and treatment plan 08/27/2025: -303 commitment granted -Start metformin ER 500mg daily with dinner 08/26/2025: -Start Trileptal 300mg HS -Start Vit D -303 commitment hearing tomorrow 08/25/2025: The patient was admitted to the [facility] ([facility] mental health unit) on q15 min checks (behavioral with suicide precautions) for safety. The patient will participate in group, recreational, and milieu therapies and will be offered additional individual and family sessions as clinically appropriate. -Start clonidine 0.1mg HS -Continue abilify 30mg daily -Continue lamictal but now at 25mg HS due to recent non-adherence of unknown duration but seems to be for >4 days based on report of many pills hoarded -Olanzapine 5mg BID po prn for agitation -Fasting lipid panel, HbA1c, Vit D tomorrow AM -Monitor for somatic symptoms of constipation, cramping, pain and offer prn medications as neded -Given the holiday we may need to pursue 303 commitment earlier than usual if [facility] offices will be closed following . -Requesting records from outpatient psychiatry office to review past mood stabilizer and SSRI trials as possible fluoxetine could help with PMDD and would prefer to consider alternative to lamictal given high risks with non-adherence or intermittent adherence -Suicide and homicide precautions -SW to gather collateral and clarify her outpatient supports Inventory Assets Strengths: supportive relationships, resilient Needs: safety and stabilization, medication adjustment, additional coping skills, increased outpatient services Suicide Risk Level Suicide Risk Level: Moderate (q15 min suicide checks) (recent self-harm and escalating behavioral dysregulation but showing slightly better emotional regulation, currently denies SI and reports feeling safe in the hospital and states comfort with asking staff for support if needed) Risk Factors Assessment Male: No : Yes Do You Have Access To A Gun?: No Health Problems: No Mental Health Diagnoses: Yes Substance Use Disorders: No Previous Attempt: Yes Previous Psychiatric Hospitalization: Yes Protective Factors Assessment Employed: No Supportive Family: Yes Interval History Identifying Information SUMMER SINGH is a 25-year-old woman who currently lives in [place] in an [facility] retirement, has a history of ASD with intellectual disability, mood disorder, PTSD, craniofacial syndrome with a history of multiple prior psychiatric hospitalizations as well as history of self-harm, suicide attempts, and behavioral dysregulation and was admitted on 08/25/25 07:53 on a 302 involuntary commitment for aggressive behavior toward staff, self-harm and disorganization in the context of recent medication non-adherence with lamictal and medication changes. Chief Complaint emotional dysregulation Review of Systems Sleep Information Total Hours of Sleep: 6.25 Sleep Comments: Awoke early Meal Information Percent Meal Consumed - Breakfast: 100 Percent Meal Consumed - Lunch: 75 Percent Meal Consumed - Dinner: 90 Subjective Subjective Patient was seen & assessed and interval progress reviewed with treatment team nursing and social work Patient slept 6.5 hours. Has an [facility] support meeting today. From interview reports eating a chocolate chip muffin and feeling sick from eating too much. She discusses the different hair colors she has styled her hair with. Asking about medication costs. She shows her completed safety plans and goes over it with me. Denies SI and is future oriented to return to her facility. Feels slightly nervous about today's meeting however feels it will go well. Physical Exam Mental Examination Appearance: Disheveled Eye Contact: Maintains Eye Contact Motor Behavior: Unremarkable Speech: Circumstantial Mood: Euthymic and Calm Affect: Congruent Thought Process: Intact Thought Content: Tangential Hallucinations: None Insight: Poor Judgement: Poor Vital Signs (Past 24 Hours) Last Vital Signs Temp 37 C 09/01/25 06:18 Pulse 64 09/01/25 06:18 Resp 18 09/01/25 06:18 BP 104/65 09/01/25 06:18 Pulse Ox 99 09/01/25 06:18 O2 Del Method Room Air 09/01/25 06:18 Results & Data ([facility]) Current Inpatient Medications Current Inpatient Medications: Current Inpatient Medications Acetaminophen (Acetaminophen 325 Mg Tab) 650 mg PO Q4H PRN PRN Reason: Headache or Minor Fever Stop: 09/24/25 07:52 Last Admin: 08/27/25 08:24 Dose: 650 mg Al Hydrox/Mg Hydrox/Simethicone (Aluminum/Magnesium Susp 30 Ml Udc) 30 ml PO Q4H PRN PRN Reason: GI Upset Stop: 09/24/25 07:52 Last Admin: 09/01/25 12:08 Dose: 30 ml Aripiprazole (Aripiprazole 15 Mg Tab) 30 mg PO PM PALAK Stop: 09/26/25 20:59 Last Admin: 08/31/25 22:04 Dose: 30 mg Bismuth Subsalicylate (Bismuth Subsalicylate 262 Mg Chew) 2 tab PO Q30M PRN PRN Reason: Loose Stool/Diarrhea Stop: 09/24/25 07:52 Clonidine HCl (Clonidine Hcl 0.1 Mg Tab) 0.1 mg PO HS PALAK Stop: 09/24/25 21:59 Last Admin: 08/31/25 22:04 Dose: 0.1 mg Hydroxyzine HCl (Hydroxyzine Hcl 25 Mg Tab) 50 mg PO HSZ PRN PRN Reason: Insomnia Stop: 09/24/25 07:52 Hydroxyzine HCl (Hydroxyzine Hcl 25 Mg Tab) 25 mg PO Q4H PRN PRN Reason: Anxiety Stop: 09/24/25 07:52 Last Admin: 08/28/25 12:35 Dose: 25 mg Lamotrigine (Lamotrigine 25 Mg Tab) 25 mg PO PM PALAK; Protocol Stop: 09/26/25 20:59 Last Admin: 08/31/25 22:04 Dose: 25 mg Magnesium Hydroxide (Magnesium Hydroxide Susp 30 Ml Udc) 30 ml PO DAILY PRN PRN Reason: Constipation Stop: 09/24/25 07:52 Metformin HCl (Metformin Hcl Er 500 Mg Tabcr) 500 mg PO DAILYBD PALAK Stop: 09/26/25 17:14 Last Admin: 08/31/25 17:06 Dose: 500 mg Miscellaneous (Ethynodiol Diac-Eth Estradiol ([place])--Non-Formulary Medication) 1 each PO DAILY PALAK Stop: 09/27/25 08:59 Last Admin: 09/01/25 08:38 Dose: 1 each Olanzapine (Olanzapine 5 Mg Tablet) 5 mg PO BID PRN PRN Reason: Agitation Stop: 09/24/25 08:59 Oxcarbazepine (Oxcarbazepine 150 Mg Tablet) 300 mg PO PM PALAK Stop: 09/26/25 20:59 Last Admin: 08/31/25 22:04 Dose: 300 mg Sodium Chloride (Sodium Chloride 0.65% Na Soln 45 Ml ([place])) 1 - 2 sprays NA PRN PRN PRN Reason: Nasal Dryness/Congestion Stop: 09/24/25 07:52 Vitamin D (Cholecalciferol 125 Mcg (5,000 Units) Tab) 125 mcg PO QAM PALAK Stop: 09/26/25 08:59 Last Admin: 09/01/25 08:38 Dose: 125 mcg Mental Health & Subst Abuse Tx Psychiatrist Name of Psychiatrist: [facility] [address], [place] [address] Psychiatrist's Date Of Appointment With Psychiatric Provider: 11/05/25 Time of Appointment with Psychiatrist: 3pm Psychiatric Appointment Comment: In person Therapist Name of Therapist: Silviano Rodriguez Therapist's Date of Therapist Appointment: 09/04/25 Time of Therapist Appointment: 11AM Therapy Appointment Comment: In Person. [address], [place] [address]
--- NOTE | 2025-09-02 12:45 | Psychiatric Progress Note ---
Date of Service September 02, 2025 Impression / Recommendations Impression SUMMER SINGH is a 25-year-old woman who currently lives in [place] in an [facility] fpc, has a history of ASD with intellectual disability, mood disorder, PTSD, craniofacial syndrome with a history of multiple prior psychiatric hospitalizations as well as history of self-harm, suicide attempts, and behavioral dysregulation and was admitted on 08/25/25 07:53 on a 302 involuntary commitment for aggressive behavior toward staff, self-harm and disorganization in the context of recent medication non-adherence with lamictal and medication changes. Now on 303 commitment as of 08/27/2025. Diagnostically consistent with unspecified mood disorder with differential including depression vs bipolar disorder with increased mood lability and irritability in context of recent medication non-adherence with lamictal vs exacerbation of longstanding emotional dysregulation & self-injurious and impulsive aggressive behaviors from ASD which typically worsen with limit setting vs premenstrual dysphoric disorder given report that symptoms tend to worsen prior to menses but also with evidence of increasing symptoms over multiple weeks. Also possible that stimulant addition caused worsening of behaviors though this seems less likely as methylphenidate was started in April with last dose increase in May per PDMP. Would also wonder about cramps or other physical symptoms such as constipation increasing episodes of irritability and behavioral dysregulation, especially if she struggles to identify these somatic experiences or communicate them. A: Isolated periods of emotional dysregulation due to new restrictions at fpc. Otherwise behaviors have been stable. Is tolerating the medications well with good sleep. Working with home facility plan transfer. MNPR due to recent aggression and behavioral dysregulation Overall, I spent a total of 25 minutes on this case including meeting with the patient, reviewing the chart, nursing report, multidisciplinary team meeting, orders, and documentation. (1) Aggressive behavior: (2) Suicidal ideation: (3) Mood disorder: (4) Autism spectrum disorder with accompanying intellectual disability without language impairment, requiring support: (5) Trauma and stressor-related disorder: Plan 09/02/2025: Continue medications and treatment plan 09/01/2025: Continue medications and treatment plan 08/31/2025: Continue medications and treatment plan 08/30/2025: Continue medications and treatment plan 08/29/2025: Continue medications and treatment plan 08/28/2025: Continue medications and treatment plan 08/27/2025: -303 commitment granted -Start metformin ER 500mg daily with dinner 08/26/2025: -Start Trileptal 300mg HS -Start Vit D -303 commitment hearing tomorrow 08/25/2025: The patient was admitted to the [facility] ([facility] mental health unit) on q15 min checks (behavioral with suicide precautions) for safety. The patient will participate in group, recreational, and milieu therapies and will be offered additional individual and family sessions as clinically appropriate. -Start clonidine 0.1mg HS -Continue abilify 30mg daily -Continue lamictal but now at 25mg HS due to recent non-adherence of unknown duration but seems to be for >4 days based on report of many pills hoarded -Olanzapine 5mg BID po prn for agitation -Fasting lipid panel, HbA1c, Vit D tomorrow AM -Monitor for somatic symptoms of constipation, cramping, pain and offer prn medications as neded -Given the holiday we may need to pursue 303 commitment earlier than usual if [facility] offices will be closed following . -Requesting records from outpatient psychiatry office to review past mood stabilizer and SSRI trials as possible fluoxetine could help with PMDD and would prefer to consider alternative to lamictal given high risks with non-adherence or intermittent adherence -Suicide and homicide precautions -SW to gather collateral and clarify her outpatient supports Inventory Assets Strengths: supportive relationships, resilient Needs: safety and stabilization, medication adjustment, additional coping skills, increased outpatient services Suicide Risk Level Suicide Risk Level: Moderate (q15 min suicide checks) (recent self-harm and escalating behavioral dysregulation but showing slightly better emotional regulation, currently denies SI and reports feeling safe in the hospital and states comfort with asking staff for support if needed) Risk Factors Assessment Male: No : Yes Do You Have Access To A Gun?: No Health Problems: No Mental Health Diagnoses: Yes Substance Use Disorders: No Previous Attempt: Yes Previous Psychiatric Hospitalization: Yes Protective Factors Assessment Employed: No Supportive Family: Yes Interval History Identifying Information SUMMER SINGH is a 25-year-old woman who currently lives in [place] in an [facility] fpc, has a history of ASD with intellectual disability, mood disorder, PTSD, craniofacial syndrome with a history of multiple prior psychiatric hospitalizations as well as history of self-harm, suicide attempts, and behavioral dysregulation and was admitted on 08/25/25 07:53 on a 302 involuntary commitment for aggressive behavior toward staff, self-harm and disorganization in the context of recent medication non-adherence with lamictal and medication changes. Chief Complaint Emotional dysregulation Review of Systems Sleep Information Total Hours of Sleep: 6.5 Sleep Comments: Awoke early Meal Information Percent Meal Consumed - Breakfast: 50 Percent Meal Consumed - Lunch: 75 Percent Meal Consumed - Dinner: 100 Subjective Subjective Patient was seen & assessed and interval progress reviewed with treatment team nursing and social work Overnight slept well and 6.5 hours. Continued poor self-care and requires prompting, likely her baseline. Tolerated the meeting with outside facility mostly however presented significant emotional dysregulation when the topic of removing all sharps from her home environmentthis impacted her hobby of making fluids and was distressing to the patient. Today her behavior is appropriate presents no concerns. Seen sleeping and request to go back to sleep. Physical Exam Mental Examination Appearance: Disheveled Eye Contact: Maintains Eye Contact Motor Behavior: Unremarkable Speech: Circumstantial Mood: Euthymic and Calm Affect: Congruent Thought Process: Intact Thought Content: Tangential Hallucinations: None Insight: Poor Judgement: Poor Vital Signs (Past 24 Hours) Last Vital Signs Temp 36.9 C 09/02/25 06:00 Pulse 60 09/02/25 06:28 Resp 18 09/02/25 06:00 BP 94/45 L 09/02/25 06:28 Pulse Ox 99 09/01/25 06:18 O2 Del Method Room Air 09/01/25 06:18 Results & Data ([facility]) Current Inpatient Medications Current Inpatient Medications: Current Inpatient Medications Acetaminophen (Acetaminophen 325 Mg Tab) 650 mg PO Q4H PRN PRN Reason: Headache or Minor Fever Stop: 09/24/25 07:52 Last Admin: 08/27/25 08:24 Dose: 650 mg Al Hydrox/Mg Hydrox/Simethicone (Aluminum/Magnesium Susp 30 Ml Udc) 30 ml PO Q4H PRN PRN Reason: GI Upset Stop: 09/24/25 07:52 Last Admin: 09/01/25 12:08 Dose: 30 ml Aripiprazole (Aripiprazole 15 Mg Tab) 30 mg PO PM PALAK Stop: 09/26/25 20:59 Last Admin: 09/01/25 21:07 Dose: 30 mg Bismuth Subsalicylate (Bismuth Subsalicylate 262 Mg Chew) 2 tab PO Q30M PRN PRN Reason: Loose Stool/Diarrhea Stop: 09/24/25 07:52 Clonidine HCl (Clonidine Hcl 0.1 Mg Tab) 0.1 mg PO HS PALAK Stop: 09/24/25 21:59 Last Admin: 09/01/25 21:07 Dose: 0.1 mg Hydroxyzine HCl (Hydroxyzine Hcl 25 Mg Tab) 50 mg PO HSZ PRN PRN Reason: Insomnia Stop: 09/24/25 07:52 Last Admin: 09/01/25 22:58 Dose: 50 mg Hydroxyzine HCl (Hydroxyzine Hcl 25 Mg Tab) 25 mg PO Q4H PRN PRN Reason: Anxiety Stop: 09/24/25 07:52 Last Admin: 08/28/25 12:35 Dose: 25 mg Lamotrigine (Lamotrigine 25 Mg Tab) 25 mg PO PM PALAK; Protocol Stop: 09/26/25 20:59 Last Admin: 09/01/25 21:07 Dose: 25 mg Magnesium Hydroxide (Magnesium Hydroxide Susp 30 Ml Udc) 30 ml PO DAILY PRN PRN Reason: Constipation Stop: 09/24/25 07:52 Metformin HCl (Metformin Hcl Er 500 Mg Tabcr) 500 mg PO DAILYBD PALAK Stop: 09/26/25 17:14 Last Admin: 09/01/25 17:19 Dose: 500 mg Miscellaneous (Ethynodiol Diac-Eth Estradiol ([place])--Non-Formulary Me dication) 1 each PO DAILY PALAK Stop: 09/27/25 08:59 Last Admin: 09/02/25 08:29 Dose: 1 each Olanzapine (Olanzapine 5 Mg Tablet) 5 mg PO BID PRN PRN Reason: Agitation Stop: 09/24/25 08:59 Oxcarbazepine (Oxcarbazepine 150 Mg Tablet) 300 mg PO PM PALAK Stop: 09/26/25 20:59 Last Admin: 09/01/25 21:07 Dose: 300 mg Sodium Chloride (Sodium Chloride 0.65% Na Soln 45 Ml ([place])) 1 - 2 sprays NA PRN PRN PRN Reason: Nasal Dryness/Congestion Stop: 09/24/25 07:52 Vitamin D (Cholecalciferol 125 Mcg (5,000 Units) Tab) 125 mcg PO QAM PALAK Stop: 09/26/25 08:59 Last Admin: 09/02/25 08:29 Dose: 125 mcg Mental Health & Subst Abuse Tx Psychiatrist Name of Psychiatrist: [address], [place] [address] Psychiatrist's Date Of Appointment With Psychiatric Provider: 11/05/25 Time of Appointment with Psychiatrist: 3pm Psychiatric Appointment Comment: In person Therapist Name of Therapist: Silviano Rodriguez Therapist's Date of Therapist Appointment: 09/04/25 Time of Therapist Appointment: 11AM Therapy Appointment Comment: In Person. [address], [place] [address]
--- NOTE | 2025-09-02 14:16 | Communication Note ---
Date of Service: September 02, 2025 Meeting with pt's prison ([facility]) regarding expectations from hospitalization and baseline assessment: Still struggling. Not quite back to herself. Different challenges at facility compared to inpatient. Questioning that she will follow her safety plan. Behavioral plan when she returns home. Had not cut fabric in 6 months however became acutely upset over the restriction of no fabric when discussed during the meeting. Expectations: improved emotional regulation, more organized, coping appropriately, more stable on new medications. Potential precipitating triggers: med non-adherence, relationships (on video games), loss of independence over the past year d/t unsafe behaviors. Strained relationship with parents at times and can sometimes be a negative influence. Last inpatient was not allowed to return home, and was taken to [facility] for the first time. Possible self sabotaging. Reassessment in one week.
[2025-09-02] MEDS: lamoTRIgine 25 MG TAB PO SCH (21:01)
--- NOTE | 2025-09-03 12:39 | Psychiatric Progress Note ---
Date of Service September 03, 2025 Impression / Recommendations Impression SUMMER SINGH is a 25-year-old woman who currently lives in [place] in an [facility], has a history of ASD with intellectual disability, mood disorder, PTSD, craniofacial syndrome with a history of multiple prior psychiatric hospitalizations as well as history of self-harm, suicide attempts, and behavioral dysregulation and was admitted on 08/25/25 07:53 on a 302 involuntary commitment for aggressive behavior toward staff, self-harm and disorganization in the context of recent medication non-adherence with lamictal and medication changes. Now on 303 commitment as of 08/27/2025. A: Presented significant emotional dysregulation and difficulty coping upon news of patient not being able to return to the facility at this time. Had a meeting with the care team at her facility to align on expectations and recommendations (see communication note for more). Concern for excess sedation from a.m. Trileptal and will decrease dose. MNPR due to recent aggression and behavioral dysregulation Overall, I spent a total of 25 minutes on this case including meeting with the patient, reviewing the chart, nursing report, multidisciplinary team meeting, orders, and documentation. (1) Aggressive behavior: (2) Suicidal ideation: (3) Autism spectrum disorder with accompanying intellectual disability without language impairment, requiring support: (4) Trauma and stressor-related disorder: Plan 09/03/2025: Decrease Trileptal to 150 mg in the morning and continue 300 mg at bedtime 09/02/2025: Increase Trileptal to 300mg BID; Increase Lamotrigine to 50mg QPM 09/01/2025: Continue medications and treatment plan 08/31/2025: Continue medications and treatment plan 08/30/2025: Continue medications and treatment plan 08/29/2025: Continue medications and treatment plan 08/28/2025: Continue medications and treatment plan 08/27/2025: -303 commitment granted -Start metformin ER 500mg daily with dinner 08/26/2025: -Start Trileptal 300mg HS -Start Vit D -303 commitment hearing tomorrow 08/25/2025: The patient was admitted to the [facility] ([facility] mental health unit) on q15 min checks (behavioral with suicide precautions) for safety. The patient will participate in group, recreational, and milieu therapies and will be offered additional individual and family sessions as clinically appropriate. -Start clonidine 0.1mg HS -Continue abilify 30mg daily -Continue lamictal but now at 25mg HS due to recent non-adherence of unknown duration but seems to be for >4 days based on report of many pills hoarded -Olanzapine 5mg BID po prn for agitation -Fasting lipid panel, HbA1c, Vit D tomorrow AM -Monitor for somatic symptoms of constipation, cramping, pain and offer prn medications as neded -Given the holiday we may need to pursue 303 commitment earlier than usual if [facility] health offices will be closed following . -Requesting records from outpatient psychiatry office to review past mood stabil izer and SSRI trials as possible fluoxetine could help with PMDD and would prefer to consider alternative to lamictal given high risks with non-adherence or intermittent adherence -Suicide and homicide precautions -SW to gather collateral and clarify her outpatient supports Inventory Assets Strengths: supportive relationships, resilient Needs: safety and stabilization, medication adjustment, additional coping skills, increased outpatient services Suicide Risk Level Suicide Risk Level: Moderate (q15 min suicide checks) (recent self-harm and escalating behavioral dysregulation but showing slightly better emotional regulation, currently denies SI and reports feeling safe in the hospital and states comfort with asking staff for support if needed) Risk Factors Assessment Male: No : Yes Do You Have Access To A Gun?: No Health Problems: No Mental Health Diagnoses: Yes Substance Use Disorders: No Previous Attempt: Yes Previous Psychiatric Hospitalization: Yes Protective Factors Assessment Employed: No Supportive Family: Yes Interval History Identifying Information SUMMER SINGH is a 25-year-old woman who currently lives in [place] in an [facility], has a history of ASD with intellectual disability, mood disorder, PTSD, craniofacial syndrome with a history of multiple prior psychiatric hospitalizations as well as history of self-harm, suicide attempts, and behavioral dysregulation and was admitted on 08/25/25 07:53 on a 302 involuntary commitment for aggressive behavior toward staff, self-harm and disorganization in the context of recent medication non-adherence with lamictal and medication changes. Chief Complaint Emotional dysregulation Review of Systems Sleep Information Total Hours of Sleep: 8.75 Sleep Comments: Awoke early Meal Information Percent Meal Consumed - Breakfast: 100 Percent Meal Consumed - Lunch: 75 Percent Meal Consumed - Dinner: 100 Subjective Subjective Patient was seen & assessed and interval progress reviewed with treatment team nursing and social work Overnight patient was distraught over the news of facility not being able to accept her at this time. Slept 8.75 hours. Appears sedated this morning. She reports sleeping well and reports feeling groggy. She shares a note with me where she talks about how she feels abandoned by her care team at her facility and her parents. Says that her parents often work and do not talk to her regularly because they are too busy. Patient was reassured. I informed her of the expectations from her fci for her to return. Physical Exam Mental Examination Appearance: Disheveled Eye Contact: Maintains Eye Contact Motor Behavior: Unremarkable Speech: Circumstantial Mood: Euthymic and Calm Affect: Congruent Thought Process: Intact Thought Content: Tangential Hallucinations: None Insight: Poor Judgement: Poor Vital Signs (Past 24 Hours) Last Vital Signs Temp 36.5 C 09/03/25 06:00 Pulse 80 09/03/25 06:01 Resp 18 09/03/25 06:00 BP 109/73 09/03/25 06:01 Pulse Ox 97 09/03/25 06:00 O2 Del Method Room Air 09/03/25 06:00 Results & Data ([facility]) Current Inpatient Medications Current Inpatient Medications: Current Inpatient Medications Acetaminophen (Acetaminophen 325 Mg Tab) 650 mg PO Q4H PRN PRN Reason: Headache or Minor Fever Stop: 09/24/25 07:52 Last Admin: 08/27/25 08:24 Dose: 650 mg Al Hydrox/Mg Hydrox/Simethicone (Aluminum/Magnesium Susp 30 Ml Udc) 30 ml PO Q4H PRN PRN Reason: GI Upset Stop: 09/24/25 07:52 Last Admin: 09/01/25 12:08 Dose: 30 ml Aripiprazole (Aripiprazole 15 Mg Tab) 30 mg PO PM PALAK Stop: 09/26/25 20:59 Last Admin: 09/02/25 21:02 Dose: 30 mg Bismuth Subsalicylate (Bismuth Subsalicylate 262 Mg Chew) 2 tab PO Q30M PRN PRN Reason: Loose Stool/Diarrhea Stop: 09/24/25 07:52 Clonidine HCl (Clonidine Hcl 0.1 Mg Tab) 0.1 mg PO HS PALAK Stop: 09/24/25 21:59 Last Admin: 09/02/25 21:00 Dose: 0.1 mg Hydroxyzine HCl (Hydroxyzine Hcl 25 Mg Tab) 50 mg PO HSZ PRN PRN Reason: Insomnia Stop: 09/24/25 07:52 Last Admin: 09/01/25 22:58 Dose: 50 mg Hydroxyzine HCl (Hydroxyzine Hcl 25 Mg Tab) 25 mg PO Q4H PRN PRN Reason: Anxiety Stop: 09/24/25 07:52 Last Admin: 08/28/25 12:35 Dose: 25 mg Lamotrigine (Lamotrigine 25 Mg Tab) 50 mg PO PM PALAK; Protocol Stop: 10/02/25 20:59 Last Admin: 09/02/25 21:01 Dose: 50 mg Magnesium Hydroxide (Magnesium Hydroxide Susp 30 Ml Udc) 30 ml PO DAILY PRN PRN Reason: Constipation Stop: 09/24/25 07:52 Metformin HCl (Metformin Hcl Er 500 Mg Tabcr) 500 mg PO DAILYBD PALAK Stop: 09/26/25 17:14 Last Admin: 09/02/25 18:01 Dose: 500 mg Miscellaneous (Ethynodiol Diac-Eth Estradiol (Kelnor)--Non-Formulary Medication) 1 each PO DAILY PALAK Stop: 09/27/25 08:59 Last Admin: 09/03/25 08:17 Dose: 1 each Olanzapine (Olanzapine 5 Mg Tablet) 5 mg PO BID PRN PRN Reason: Agitation Stop: 09/24/25 08:59 Oxcarbazepine (Oxcarbazepine 150 Mg Tablet) 300 mg PO PM PALAK Stop: 09/26/25 20:59 Last Admin: 09/02/25 21:02 Dose: 300 mg Oxcarbazepine (Oxcarbazepine 150 Mg Tablet) 300 mg PO QAM PALAK Stop: 10/03/25 08:59 Last Admin: 09/03/25 08:17 Dose: 300 mg Sodium Chloride (Sodium Chloride 0.65% Na Soln 45 Ml ([place])) 1 - 2 sprays NA PRN PRN PRN Reason: Nasal Dryness/Congestion Stop: 09/24/25 07:52 Vitamin D (Cholecalciferol 125 Mcg (5,000 Units) Tab) 125 mcg PO QAM PALAK Stop: 09/26/25 08:59 Last Admin: 09/03/25 08:17 Dose: 125 mcg Mental Health & Subst Abuse Tx Psychiatrist Name of Psychiatrist: [facility], [place] [address] Psychiatrist's Date Of Appointment With Psychiatric Provider: 11/05/25 Time of Appointment with Psychiatrist: 3pm Psychiatric Appointment Comment: In person Therapist Name of Therapist: Silviano Rodriguez Therapist's Date of Therapist Appointment: 09/16/25 Time of Therapist Appointment: 11AM Therapy Appointment Comment: In Person. [address], [place] [address]
--- NOTE | 2025-09-04 09:04 | Psychiatric Progress Note ---
Date of Service September 04, 2025 Impression / Recommendations Impression SUMMER SINGH is a 25-year-old woman who currently lives in [place] in an [facility] senior care, has a history of ASD with intellectual disability, mood disorder, PTSD, craniofacial syndrome with a history of multiple prior psychiatric hospitalizations as well as history of self-harm, suicide attempts, and behavioral dysregulation and was admitted on 08/25/25 07:53 on a 302 involuntary commitment for aggressive behavior toward staff, self-harm and disorganization in the context of recent medication non-adherence with lamictal and medication changes. Now on 303 commitment as of 08/27/2025. A: Showing more emotional regulation today. Trileptal dose wasn't reduced this morning so order change made to start tomorrow. She is meeting with [facility] staff tomorrow to review behavioral plan to help with goal of transitioning back to [facility] safely. MNPR due to recent aggression and behavioral dysregulation Overall, I spent a total of 40 minutes on this case including meeting with the patient, reviewing the chart, nursing report, multidisciplinary team meeting, orders, and documentation. (1) Aggressive behavior: (2) Suicidal ideation: (3) Autism spectrum disorder with accompanying intellectual disability without language impairment, requiring support: (4) Trauma and stressor-related disorder: Plan 09/04/2025: -Decrease Trileptal to 150mg qAM and continue 300mg HS 09/03/2025: Decrease Trileptal to 150 mg in the morning and continue 300 mg at bedtime 09/02/2025: Increase Trileptal to 300mg BID; Increase Lamotrigine to 50mg QPM 09/01/2025: Continue medications and treatment plan 08/31/2025: Continue medications and treatment plan 08/30/2025: Continue medications and treatment plan 08/29/2025: Continue medications and treatment plan 08/28/2025: Continue medications and treatment plan 08/27/2025: -303 commitment granted -Start metformin ER 500mg daily with dinner 08/26/2025: -Start Trileptal 300mg HS -Start Vit D -303 commitment hearing tomorrow 08/25/2025: The patient was admitted to the [facility] ([facility] mental health unit) on q15 min checks (behavioral with suicide precautions) for safety. The patient will participate in group, recreational, and milieu therapies and will be offered additional individual and family sessions as clinically appropriate. -Start clonidine 0.1mg HS -Continue abilify 30mg daily -Continue lamictal but now at 25mg HS due to recent non-adherence of unknown duration but seems to be for >4 days based on report of many pills hoarded -Olanzapine 5mg BID po prn for agitation -Fasting lipid panel, HbA1c, Vit D tomorrow AM -Monitor for somatic symptoms of constipation, cramping, pain and offer prn medications as neded -Given the holiday we may need to pursue 303 commitment earlier than usual if [facility] offices will be closed following . -Requesting records from outpatient psychiatry office to review past mood stabilizer and SSRI trials as possible fluoxetine could help with PMDD and would prefer to consider alternative to lamictal given high risks with non-adherence or intermittent adherence -Suicide and homicide precautions -SW to gather collateral and clarify her outpatient supports Inventory Assets Strengths: supportive relationships, resilient Needs: safety and stabilization, medication adjustment, additional coping skills, increased outpatient services Suicide Risk Level Suicide Risk Level: Moderate (q15 min suicide checks) (recent self-harm and escalating behavioral dysregulation [employer] but showing improving emotional regulation, currently denies SI and reports feeling safe in the hospital and states comfort with asking staff for support if needed) Risk Factors Assessment Male: No : Yes Do You Have Access To A Gun?: No Health Problems: No Mental Health Diagnoses: Yes Substance Use Disorders: No Previous Attempt: Yes Previous Psychiatric Hospitalization: Yes Protective Factors Assessment Employed: No Supportive Family: Yes Interval History Identifying Information SUMMER SINGH is a 25-year-old woman who currently lives in [place] in an [facility] senior care, has a history of ASD with intellectual disability, mood disorder, PTSD, craniofacial syndrome with a history of multiple prior psychiatric hospitalizations as well as history of self-harm, suicide attempts, and behavioral dysregulation and was admitted on 08/25/25 07:53 on a 302 involuntary commitment for aggressive behavior toward staff, self-harm and disorganization in the context of recent medication non-adherence with lamictal and medication changes. Chief Complaint "I've been doing deep breathing and affirmations". Review of Systems Sleep Information Total Hours of Sleep: 8 Sleep Comments: Meal Information Percent Meal Consumed - Breakfast: 100 Percent Meal Consumed - Lunch: 75 Percent Meal Consumed - Dinner: 75 Subjective Subjective Patient was seen & assessed and interval progress reviewed with nursing and social work. Attending groups. rated her mood "8" and "excited" last evening. Sleeping well. Today reports feeling like she needs more support after having phone call with [facility] staff. Reports ongoing morning fatigue, appears her dose of Trileptal wasn't decreased as planned but she remains agreeable to trying this lower dose starting tomorrow. She denies any other medication side effects. She is working on ways to cope with anger and limiting setting. Remains hopeful she can discharge by next Monday to attend [facility]. Physical Exam Psychiatric Orientation: alert and oriented x 3 Apperance: appropriately dressed and appropriately groomed Eye Contact: good eye contact Motor Behavior: no abnormal motor movements Speech: + abnormal rate/rhythm/volume of speech (monotone) Affect: + labile affect Mood: + anxious mood; no depressed mood Thought Process: goal directed thought process Thought Content: reality based without delusions Suicidal Thoughts: denies suicidal thoughts, denies suicidal plan and denies suicidal intent Homicidal Thoughts: denies homicidal thoughts, denies homicidal plan and denies homicidal intent Hallucinations: no auditory hallucinations and no visual hallucinations Cognition: recent memory grossly intact, remote memory grossly intact and language grossly intact; + attention not intact Estimated Intelligence: consistent with education level Insight: + limited insight Judgment: + limited judgement Vital Signs (Past 24 Hours) Last Vital Signs Temp 36.2 C L 09/04/25 06:24 Pulse 57 L 09/04/25 06:24 Resp 16 09/04/25 06:24 BP 112/70 09/04/25 06:24 Pulse Ox 97 09/03/25 06:00 O2 Del Method Room Air 09/03/25 06:00 Results & Data ([facility]) Current Inpatient Medications Current Inpatient Medications: Current Inpatient Medications Acetaminophen (Acetaminophen 325 Mg Tab) 650 mg PO Q4H PRN PRN Reason: Headache or Minor Fever Stop: 09/24/25 07:52 Last Admin: 08/27/25 08:24 Dose: 650 mg Al Hydrox/Mg Hydrox/Simethicone (Aluminum/Magnesium Susp 30 Ml Udc) 30 ml PO Q4H PRN PRN Reason: GI Upset Stop: 09/24/25 07:52 Last Admin: 09/01/25 12:08 Dose: 30 ml Aripiprazole (Aripiprazole 15 Mg Tab) 30 mg PO PM PALAK Stop: 09/26/25 20:59 Last Admin: 09/03/25 21:26 Dose: 30 mg Bismuth Subsalicylate (Bismuth Subsalicylate 262 Mg Chew) 2 tab PO Q30M PRN PRN Reason: Loose Stool/Diarrhea Stop: 09/24/25 07:52 Clonidine HCl (Clonidine Hcl 0.1 Mg Tab) 0.1 mg PO HS PALAK Stop: 09/24/25 21:59 Last Admin: 09/03/25 21:27 Dose: 0.1 mg Hydroxyzine HCl (Hydroxyzine Hcl 25 Mg Tab) 50 mg PO HSZ PRN PRN Reason: Insomnia Stop: 09/24/25 07:52 Last Admin: 09/03/25 21:30 Dose: 50 mg Hydroxyzine HCl (Hydroxyzine Hcl 25 Mg Tab) 25 mg PO Q4H PRN PRN Reason: Anxiety Stop: 09/24/25 07:52 Last Admin: 08/28/25 12:35 Dose: 25 mg Lamotrigine (Lamotrigine 25 Mg Tab) 50 mg PO PM PALAK; Protocol Stop: 10/02/25 20:59 Last Admin: 09/03/25 21:26 Dose: 50 mg Magnesium Hydroxide (Magnesium Hydroxide Susp 30 Ml Udc) 30 ml PO DAILY PRN PRN Reason: Constipation Stop: 09/24/25 07:52 Metformin HCl (Metformin Hcl Er 500 Mg Tabcr) 500 mg PO DAILYBD PALAK Stop: 09/26/25 17:14 Last Admin: 09/03/25 17:14 Dose: 500 mg Miscellaneous (Ethynodiol Diac-Eth Estradiol ([place])--Non-Formulary Medication) 1 each PO DAILY PALAK Stop: 09/27/25 08:59 Last Admin: 09/03/25 08:17 Dose: 1 each Olanzapine (Olanzapine 5 Mg Tablet) 5 mg PO BID PRN PRN Reason: Agitation Stop: 09/24/25 08:59 Oxcarbazepine (Oxcarbazepine 150 Mg Tablet) 300 mg PO PM PALAK Stop: 09/26/25 20:59 Last Admin: 09/03/25 21:27 Dose: 300 mg Oxcarbazepine (Oxcarbazepine 150 Mg Tablet) 300 mg PO QAM PALAK Stop: 10/03/25 08:59 Last Admin: 09/03/25 08:17 Dose: 300 mg Sodium Chloride (Sodium Chloride 0.65% Na Soln 45 Ml ([place])) 1 - 2 sprays NA PRN PRN PRN Reason: Nasal Dryness/Congestion Stop: 09/24/25 07:52 Vitamin D (Cholecalciferol 125 Mcg (5,000 Units) Tab) 125 mcg PO QAM PALAK Stop: 09/26/25 08:59 Last Admin: 09/03/25 08:17 Dose: 125 mcg Mental Health & Subst Abuse Tx Psychiatrist Name of Psychiatrist: [address], [place] [address] Psychiatrist's Date Of Appointment With Psychiatric Provider: 11/05/25 Time of Appointment with Psychiatrist: 3pm Psychiatric Appointment Comment: In person Therapist Name of Therapist: Silviano Rodriguez Therapist's Date of Therapist Appointment: 09/16/25 Time of Therapist Appointment: 11AM Therapy Appointment Comment: In Person. [address], [place] [address]
--- NOTE | 2025-09-05 09:12 | Psychiatric Progress Note ---
Date of Service September 05, 2025 Impression / Recommendations Impression SUMMER SINGH is a 25-year-old woman who currently lives in [place] in an [facility] correction, has a history of ASD with intellectual disability, mood disorder, PTSD, craniofacial syndrome with a history of multiple prior psychiatric hospitalizations as well as history of self-harm, suicide attempts, and behavioral dysregulation and was admitted on 08/25/25 07:53 on a 302 involuntary commitment for aggressive behavior toward staff, self-harm and disorganization in the context of recent medication non-adherence with lamictal and medication changes. Now on 303 commitment as of 08/27/2025. A: Gets upset with phone calls when she doesn't immediately get someone on the phone or when her parents set limits. Otherwise showing good emotional control today. Continue to monitor for sedation on Trileptal but no signs of excessive sedation during the day. MNPR due to recent aggression and behavioral dysregulation Overall, I spent a total of 45 minutes on this case including meeting with the patient, reviewing the chart, nursing report, multidisciplinary team meeting, orders, and documentation. (1) Aggressive behavior: (2) Suicidal ideation: (3) Autism spectrum disorder with accompanying intellectual disability without language impairment, requiring support: (4) Trauma and stressor-related disorder: Plan 09/05/2025: Continue medications and tx plan. 09/04/2025: -Decrease Trileptal to 150mg qAM and continue 300mg HS 09/03/2025: Decrease Trileptal to 150 mg in the morning and continue 300 mg at bedtime 09/02/2025: Increase Trileptal to 300mg BID; Increase Lamotrigine to 50mg QPM 09/01/2025: Continue medications and treatment plan 08/31/2025: Continue medications and treatment plan 08/30/2025: Continue medications and treatment plan 08/29/2025: Continue medications and treatment plan 08/28/2025: Continue medications and treatment plan 08/27/2025: -303 commitment granted -Start metformin ER 500mg daily with dinner 08/26/2025: -Start Trileptal 300mg HS -Start Vit D -303 commitment hearing tomorrow 08/25/2025: The patient was admitted to the [facility] ([facility] mental health unit) on q15 min checks (behavioral with suicide precautions) for safety. The patient will participate in group, recreational, and milieu therapies and will be offered additional individual and family sessions as clinically appropriate. -Start clonidine 0.1mg HS -Continue abilify 30mg daily -Continue lamictal but now at 25mg HS due to recent non-adherence of unknown duration but seems to be for >4 days based on report of many pills hoarded -Olanzapine 5mg BID po prn for agitation -Fasting lipid panel, HbA1c, Vit D tomorrow AM -Monitor for somatic symptoms of constipation, cramping, pain and offer prn medications as neded -Given the holiday we may need to pursue 303 commitment earlier than usual if [facility] offices will be closed following . -Requesting records from outpatient psychiatry office to review past mood stabilizer and SSRI trials as possible fluoxetine could help with PMDD and would prefer to consider alternative to lamictal given high risks with non-adherence or intermittent adherence -Suicide and homicide precautions -SW to gather collateral and clarify her outpatient supports Inventory Assets Strengths: supportive relationships, resilient Needs: safety and stabilization, medication adjustment, additional coping skills, increased outpatient services Suicide Risk Level Suicide Risk Level: Moderate (q15 min suicide checks) (recent self-harm and escalating behavioral 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, currently denies SI and reports feeling safe in the hospital and states comfort with asking staff for support if needed) Risk Factors Assessment Male: No : Yes Do You Have Access To A Gun?: No Health Problems: No Mental Health Diagnoses: Yes Substance Use Disorders: No Previous Attempt: Yes Previous Psychiatric Hospitalization: Yes Protective Factors Assessment Employed: No Supportive Family: Yes Interval History Identifying Information SUMMER SINGH is a 25-year-old woman who currently lives in [place] in an [facility] correction, has a history of ASD with intellectual disability, mood disorder, PTSD, craniofacial syndrome with a history of multiple prior psychiatric hospitalizations as well as history of self-harm, suicide attempts, and behavioral dysregulation and was admitted on 08/25/25 07:53 on a 302 involuntary commitment for aggressive behavior toward staff, self-harm and disorganization in the context of recent medication non-adherence with lamictal and medication changes. Chief Complaint "Pretty good". Review of Systems Sleep Information Total Hours of Sleep: 6.75 Meal Information Percent Meal Consumed - Breakfast: 100 Percent Meal Consumed - Lunch: 75 Percent Meal Consumed - Dinner: 90 Subjective Subjective Patient was seen & assessed and interval progress reviewed with treatment team. Attending groups. Rated her mood "9" and "excited and nervous" last evening. She got upset on the phone with her mother last evening including banging the phone on the desk. Today in good behavioral control, tolerated meeting with [facility] staff to review behavioral plan. Still tired today but denies any other medication side effects nor concerns. Animated while watching TV. Physical Exam Psychiatric Orientation: alert and oriented x 3 Apperance: appropriately dressed and appropriately groomed Eye Contact: good eye contact Motor Behavior: no abnormal motor movements Speech: + abnormal rate/rhythm/volume of speech (monotone) Affect: + labile affect Mood: no depressed mood and no anxious mood Thought Process: goal directed thought process Thought Content: reality based without delusions Suicidal Thoughts: denies suicidal thoughts, denies suicidal plan and denies suicidal intent Homicidal Thoughts: denies homicidal thoughts, denies homicidal plan and denies homicidal intent Hallucinations: no auditory hallucinations and no visual hallucinations Cognition: recent memory grossly intact, remote memory grossly intact and language grossly intact; + attention not intact Estimated Intelligence: consistent with education level Insight: + limited insight Judgment: + limited judgement Vital Signs (Past 24 Hours) Last Vital Signs Temp 36.6 C 09/05/25 04:49 Pulse 75 09/05/25 04:49 Resp 18 09/05/25 04:49 BP 116/75 09/05/25 04:49 Pulse Ox 98 09/05/25 04:49 O2 Del Method Room Air 09/05/25 04:49 Results & Data ([facility]) Current Inpatient Medications Current Inpatient Medications: Current Inpatient Medications Acetaminophen (Acetaminophen 325 Mg Tab) 650 mg PO Q4H PRN PRN Reason: Headache or Minor Fever Stop: 09/24/25 07:52 Last Admin: 08/27/25 08:24 Dose: 650 mg Al Hydrox/Mg Hydrox/Simethicone (Aluminum/Magnesium Susp 30 Ml Udc) 30 ml PO Q4H PRN PRN Reason: GI Upset Stop: 09/24/25 07:52 Last Admin: 09/01/25 12:08 Dose: 30 ml Aripiprazole (Aripiprazole 15 Mg Tab) 30 mg PO PM PALAK Stop: 09/26/25 20:59 Last Admin: 09/04/25 20:29 Dose: 30 mg Bismuth Subsalicylate (Bismuth Subsalicylate 262 Mg Chew) 2 tab PO Q30M PRN PRN Reason: Loose Stool/Diarrhea Stop: 09/24/25 07:52 Clonidine HCl (Clonidine Hcl 0.1 Mg Tab) 0.1 mg PO HS PALAK Stop: 09/24/25 21:59 Last Admin: 09/04/25 20:30 Dose: 0.1 mg Hydroxyzine HCl (Hydroxyzine Hcl 25 Mg Tab) 50 mg PO HSZ PRN PRN Reason: Insomnia Stop: 09/24/25 07:52 Last Admin: 09/03/25 21:30 Dose: 50 mg Hydroxyzine HCl (Hydroxyzine Hcl 25 Mg Tab) 25 mg PO Q4H PRN PRN Reason: Anxiety Stop: 09/24/25 07:52 Last Admin: 08/28/25 12:35 Dose: 25 mg Lamotrigine (Lamotrigine 25 Mg Tab) 50 mg PO PM PALAK; Protocol Stop: 10/02/25 20:59 Last Admin: 09/04/25 20:30 Dose: 50 mg Magnesium Hydroxide (Magnesium Hydroxide Susp 30 Ml Udc) 30 ml PO DAILY PRN PRN Reason: Constipation Stop: 09/24/25 07:52 Metformin HCl (Metformin Hcl Er 500 Mg Tabcr) 500 mg PO DAILYBD PALAK Stop: 09/26/25 17:14 Last Admin: 09/04/25 17:21 Dose: 500 mg Miscellaneous (Ethynodiol Diac-Eth Estradiol ([place])--Non-Formulary Medication) 1 each PO DAILY PALAK Stop: 09/27/25 08:59 Last Admin: 09/05/25 08:43 Dose: 1 each Olanzapine (Olanzapine 5 Mg Tablet) 5 mg PO BID PRN PRN Reason: Agitation Stop: 09/24/25 08:59 Oxcarbazepine (Oxcarbazepine 150 Mg Tablet) 300 mg PO PM PALAK Stop: 09/26/25 20:59 Last Admin: 09/04/25 20:30 Dose: 300 mg Oxcarbazepine (Oxcarbazepine 150 Mg Tablet) 150 mg PO QAM PALAK Stop: 10/05/25 08:59 Last Admin: 09/05/25 08:43 Dose: 150 mg Sodium Chloride (Sodium Chloride 0.65% Na Soln 45 Ml ([place])) 1 - 2 sprays NA PRN PRN PRN Reason: Nasal Dryness/Congestion Stop: 09/24/25 07:52 Vitamin D (Cholecalciferol 125 Mcg (5,000 Units) Tab) 125 mcg PO QAM PALAK Stop: 09/26/25 08:59 Last Admin: 09/05/25 08:42 Dose: 125 mcg Mental Health & Subst Abuse Tx Psychiatrist Name of Psychiatrist: Pily Hammond , [place] [address] Psychiatrist's Date Of Appointment With Psychiatric Provider: 11/05/25 Time of Appointment with Psychiatrist: 3pm Psychiatric Appointment Comment: In person Therapist Name of Therapist: Silviano Rodriguez Therapist's Date of Therapist Appointment: 09/16/25 Time of Therapist Appointment: 11AM Therapy Appointment Comment: In Person. [address] [facility], [place] [address]
--- NOTE | 2025-09-06 09:23 | Psychiatric Progress Note ---
Date of Service September 06, 2025 Impression / Recommendations Impression SUMMER SINGH is a 25-year-old woman who currently lives in [place] in an [facility] assisted, has a history of ASD with intellectual disability, mood disorder, PTSD, craniofacial syndrome with a history of multiple prior psychiatric hospitalizations as well as history of self-harm, suicide attempts, and behavioral dysregulation and was admitted on 08/25/25 07:53 on a 302 involuntary commitment for aggressive behavior toward staff, self-harm and disorganization in the context of recent medication non-adherence with lamictal and medication changes. Now on 303 commitment as of 08/27/2025. A: Tolerated visit with her parents well, good emotional and behavioral regulation today. Appears calmer overall and without any episodes of agitation or irritability. Tolerating medications well. MNPR due to previous aggression and behavioral dysregulation and poor boundaries with peers at times Overall, I spent a total of 35 minutes on this case including meeting with the patient, reviewing the chart, nursing report, multidisciplinary team meeting, orders, and documentation. (1) Aggressive behavior: (2) Suicidal ideation: (3) Autism spectrum disorder with accompanying intellectual disability without language impairment, requiring support: (4) Trauma and stressor-related disorder: Plan 09/06/2025: Continue medications and treatment plan. -Recheck sodium tomorrow due to Trileptal use 09/05/2025: Continue medications and tx plan. 09/04/2025: -Decrease Trileptal to 150mg qAM and continue 300mg HS 09/03/2025: Decrease Trileptal to 150 mg in the morning and continue 300 mg at bedtime 09/02/2025: Increase Trileptal to 300mg BID; Increase Lamotrigine to 50mg QPM 09/01/2025: Continue medications and treatment plan 08/31/2025: Continue medications and treatment plan 08/30/2025: Continue medications and treatment plan 08/29/2025: Continue medications and treatment plan 08/28/2025: Continue medications and treatment plan 08/27/2025: -303 commitment granted -Start metformin ER 500mg daily with dinner 08/26/2025: -Start Trileptal 300mg HS -Start Vit D -303 commitment hearing tomorrow 08/25/2025: The patient was admitted to the [facility] (locked inpatient mental health unit) on q15 min checks (behavioral with suicide precautions) for safety. The patient will participate in group, recreational, and milieu therapies and will be offered additional individual and family sessions as clinically appropriate. -Start clonidine 0.1mg HS -Continue abilify 30mg daily -Continue lamictal but now at 25mg HS due to recent non-adherence of unknown duration but seems to be for >4 days based on report of many pills hoarded -Olanzapine 5mg BID po prn for agitation -Fasting lipid panel, HbA1c, Vit D tomorrow AM -Monitor for somatic symptoms of constipation, cramping, pain and offer prn medications as neded -Given the holiday we may need to pursue 303 commitment earlier than usual if [facility] offices will be closed following . -Requesting records from outpatient psychiatry office to review past mood stabilizer and SSRI trials as possible fluoxetine could help with PMDD and would prefer to consider alternative to lamictal given high risks with non-adherence or intermittent adherence -Suicide and homicide precautions -SW to gather collateral and clarify her outpatient supports Inventory Assets Strengths: supportive relationships, resilient Needs: safety and stabilization, medication adjustment, additional coping skills, increased outpatient services Suicide Risk Level Suicide Risk Level: Moderate (q15 min suicide checks) (recent self-harm and escalating behavioral dysregulation [employer]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, currently denies SI and reports feeling safe in the hospital and states comfort with asking staff for support if needed) Risk Factors Assessment Male: No : Yes Do You Have Access To A Gun?: No Health Problems: No Mental Health Diagnoses: Yes Substance Use Disorders: No Previous Attempt: Yes Previous Psychiatric Hospitalization: Yes Protective Factors Assessment Employed: No Supportive Family: Yes Interval History Identifying Information SUMMER SINGH is a 25-year-old woman who currently lives in [place] in an [facility] assisted, has a history of ASD with intellectual disability, mood disorder, PTSD, craniofacial syndrome with a history of multiple prior psychiatric hospitalizations as well as history of self-harm, suicide attempts, and behavioral dysregulation and was admitted on 08/25/25 07:53 on a 302 involuntary commitment for aggressive behavior toward staff, self-harm and disorganization in the context of recent medication non-adherence with lamictal and medication changes. Chief Complaint "I had a really good visit with my mom and dad". Review of Systems Sleep Information Total Hours of Sleep: 6.5 Meal Information Percent Meal Consumed - Breakfast: 35 Percent Meal Consumed - Lunch: 75 Percent Meal Consumed - Dinner: 50 Subjective Subjective Patient was seen & assessed and interval progress reviewed with nursing and social work. Rated her mood "10", "hyped and excited". Today she is pleased after having a good visit with her parents. Denies SI. Had some fatigue this morning which she attributes to boredom. She doesn't want to make any further medication changes, feels current doses are working well. Describes being excited for stephanie. Reflects that day before incident at [facility] leading to her admission she had been around her young relative and that in retrospect this may have "socially drained me" and perhaps her exhaustion contributed to her behavioral dysregulation. Physical Exam Psychiatric Orientation: alert and oriented x 3 Apperance: appropriately dressed and appropriately groomed Eye Contact: good eye contact Motor Behavior: no abnormal motor movements Speech: + abnormal rate/rhythm/volume of speech (monotone) Affect: euthymic affect Mood: no depressed mood and no anxious mood Thought Process: goal directed thought process Thought Content: reality based without delusions Suicidal Thoughts: denies suicidal thoughts, denies suicidal plan and denies suicidal intent Homicidal Thoughts: denies homicidal thoughts, denies homicidal plan and denies homicidal intent Hallucinations: no auditory hallucinations and no visual hallucinations Cognition: recent memory grossly intact, remote memory grossly intact, attention grossly intact and language grossly intact Estimated Intelligence: consistent with education level Insight: + fair insight Judgment: + limited judgement Vital Signs (Past 24 Hours) Last Vital Signs Temp 36.9 C 09/06/25 06:53 Pulse 62 09/06/25 06:53 Resp 16 09/06/25 06:53 BP 115/77 09/06/25 06:53 Pulse Ox 94 09/06/25 06:53 O2 Del Method Room Air 09/06/25 06:53 Results & Data (U) Current Inpatient Medications Current Inpatient Medications: Current Inpatient Medications Acetaminophen (Acetaminophen 325 Mg Tab) 650 mg PO Q4H PRN PRN Reason: Headache or Minor Fever Stop: 09/24/25 07:52 Last Admin: 08/27/25 08:24 Dose: 650 mg Al Hydrox/Mg Hydrox/Simethicone (Aluminum/Magnesium Susp 30 Ml Udc) 30 ml PO Q4H PRN PRN Reason: GI Upset Stop: 09/24/25 07:52 Last Admin: 09/01/25 12:08 Dose: 30 ml Aripiprazole (Aripiprazole 15 Mg Tab) 30 mg PO PM PALAK Stop: 09/26/25 20:59 Last Admin: 09/05/25 21:27 Dose: 30 mg Bismuth Subsalicylate (Bismuth Subsalicylate 262 Mg Chew) 2 tab PO Q30M PRN PRN Reason: Loose Stool/Diarrhea Stop: 09/24/25 07:52 Clonidine HCl (Clonidine Hcl 0.1 Mg Tab) 0.1 mg PO HS PALAK Stop: 09/24/25 21:59 Last Admin: 09/05/25 21:27 Dose: 0.1 mg Hydroxyzine HCl (Hydroxyzine Hcl 25 Mg Tab) 50 mg PO HSZ PRN PRN Reason: Insomnia Stop: 09/24/25 07:52 Last Admin: 09/03/25 21:30 Dose: 50 mg Hydroxyzine HCl (Hydroxyzine Hcl 25 Mg Tab) 25 mg PO Q4H PRN PRN Reason: Anxiety Stop: 09/24/25 07:52 Last Admin: 08/28/25 12:35 Dose: 25 mg Lamotrigine (Lamotrigine 25 Mg Tab) 50 mg PO PM PALAK; Protocol Stop: 10/02/25 20:59 Last Admin: 09/05/25 21:27 Dose: 50 mg Magnesium Hydroxide (Magnesium Hydroxide Susp 30 Ml Udc) 30 ml PO DAILY PRN PRN Reason: Constipation Stop: 09/24/25 07:52 Metformin HCl (Metformin Hcl Er 500 Mg Tabcr) 500 mg PO DAILYBD PALAK Stop: 09/26/25 17:14 Last Admin: 09/05/25 17:41 Dose: 500 mg Miscellaneous (Ethynodiol Diac-Eth Estradiol ([place])--Non-Formulary Medica tion) 1 each PO DAILY PALAK Stop: 09/27/25 08:59 Last Admin: 09/06/25 09:12 Dose: 1 each Olanzapine (Olanzapine 5 Mg Tablet) 5 mg PO BID PRN PRN Reason: Agitation Stop: 09/24/25 08:59 Oxcarbazepine (Oxcarbazepine 150 Mg Tablet) 300 mg PO PM PALAK Stop: 09/26/25 20:59 Last Admin: 09/05/25 21:27 Dose: 300 mg Oxcarbazepine (Oxcarbazepine 150 Mg Tablet) 150 mg PO QAM PALAK Stop: 10/05/25 08:59 Last Admin: 09/06/25 09:11 Dose: 150 mg Sodium Chloride (Sodium Chloride 0.65% Na Soln 45 Ml ([place])) 1 - 2 sprays NA PRN PRN PRN Reason: Nasal Dryness/Congestion Stop: 09/24/25 07:52 Vitamin D (Cholecalciferol 125 Mcg (5,000 Units) Tab) 125 mcg PO QAM PALAK Stop: 09/26/25 08:59 Last Admin: 09/06/25 09:11 Dose: 125 mcg Mental Health & Subst Abuse Tx Psychiatrist Name of Psychiatrist: Pily Hammond , [place] [address] Psychiatrist's Date Of Appointment With Psychiatric Provider: 11/05/25 Time of Appointment with Psychiatrist: 3pm Psychiatric Appointment Comment: In person Therapist Name of Therapist: Silviano Rodriguez Therapist's Date of Therapist Appointment: 09/16/25 Time of Therapist Appointment: 11AM Therapy Appointment Comment: In Person. [address] , [place] [address]
--- NOTE | 2025-09-07 09:10 | Psychiatric Progress Note ---
Date of Service September 07, 2025 Impression / Recommendations Impression SUMMER SINGH is a 25-year-old woman who currently lives in [place] in an [facility] halfway, has a history of ASD with intellectual disability, mood disorder, PTSD, craniofacial syndrome with a history of multiple prior psychiatric hospitalizations as well as history of self-harm, suicide attempts, and behavioral dysregulation and was admitted on 08/25/25 07:53 on a 302 involuntary commitment for aggressive behavior toward staff, self-harm and disorganization in the context of recent medication non-adherence with lamictal and medication changes. Now on 303 commitment as of 08/27/2025. A: Mood stable, working on ways to increase structure and expectations post hospitalization. Requires a lot of attention from RNs as she seeks out frequent feedback and assistance but does well when boundaries are set. Sodium normal with ongoing Trileptal use. MNPR due to previous aggression and behavioral dysregulation and poor boundaries with peers at times Overall, I spent a total of 36 minutes on this case including meeting with the patient, reviewing the chart, nursing report, orders, and documentation. (1) Aggressive behavior: (2) Suicidal ideation: (3) Autism spectrum disorder with accompanying intellectual disability without language impairment, requiring support: (4) Trauma and stressor-related disorder: Plan 09/07/2025: -Continue current medications and treatment plan 09/06/2025: Continue medications and treatment plan. -Recheck sodium tomorrow due to Trileptal use 09/05/2025: Continue medications and tx plan. 09/04/2025: -Decrease Trileptal to 150mg qAM and continue 300mg HS 09/03/2025: Decrease Trileptal to 150 mg in the morning and continue 300 mg at bedtime 09/02/2025: Increase Trileptal to 300mg BID; Increase Lamotrigine to 50mg QPM 09/01/2025: Continue medications and treatment plan 08/31/2025: Continue medications and treatment plan 08/30/2025: Continue medications and treatment plan 08/29/2025: Continue medications and treatment plan 08/28/2025: Continue medications and treatment plan 08/27/2025: -303 commitment granted -Start metformin ER 500mg daily with dinner 08/26/2025: -Start Trileptal 300mg HS -Start Vit D -303 commitment hearing tomorrow 08/25/2025: The patient was admitted to the [facility] ([facility] inpatient mental health unit) on q15 min checks (behavioral with suicide precautions) for safety. The patient will participate in group, recreational, and milieu therapies and will be offered additional individual and family sessions as clinically appropriate. -Start clonidine 0.1mg HS -Continue abilify 30mg daily -Continue lamictal but now at 25mg HS due to recent non-adherence of unknown duration but seems to be for >4 days based on report of many pills hoarded -Olanzapine 5mg BID po prn for agitation -Fasting lipid panel, HbA1c, Vit D tomorrow AM -Monitor for somatic symptoms of constipation, cramping, pain and offer prn medications as neded -Given the holiday we may need to pursue 303 commitment earlier than usual if [facility] offices will be closed following . -Requesting records from outpatient psychiatry office to review past mood stab ilizer and SSRI trials as possible fluoxetine could help with PMDD and would prefer to consider alternative to lamictal given high risks with non-adherence or intermittent adherence -Suicide and homicide precautions -SW to gather collateral and clarify her outpatient supports Inventory Assets Strengths: supportive relationships, resilient Needs: safety and stabilization, medication adjustment, additional coping skills, increased outpatient services Suicide Risk Level Suicide Risk Level: Moderate (q15 min suicide checks) (recent self-harm and escalating behavioral dysregulation [employer] but showing improving emotional regulation, currently denies SI and reports feeling safe in the hospital and states comfort with asking staff for support if needed) Risk Factors Assessment Male: No : Yes Do You Have Access To A Gun?: No Health Problems: No Mental Health Diagnoses: Yes Substance Use Disorders: No Previous Attempt: Yes Previous Psychiatric Hospitalization: Yes Protective Factors Assessment Employed: No Supportive Family: Yes Interval History Identifying Information SUMMER SINGH is a 25-year-old woman who currently lives in [place] in an [facility] halfway, has a history of ASD with intellectual disability, mood disorder, PTSD, craniofacial syndrome with a history of multiple prior psychiatric hospitalizations as well as history of self-harm, suicide attempts, and behavioral dysregulation and was admitted on 08/25/25 07:53 on a 302 involuntary commitment for aggressive behavior toward staff, self-harm and disorganization in the context of recent medication non-adherence with lamictal and medication changes. Chief Complaint "Pretty good". Review of Systems Sleep Information Total Hours of Sleep: 7 Meal Information Percent Meal Consumed - Breakfast: 75 Percent Meal Consumed - Lunch: 25 Percent Meal Consumed - Dinner: 100 Subjective Subjective Patient was seen & assessed and interval progress reviewed. Attending groups. Slept well overnight. Awake this morning watching a movie with breakfast. Today she reports a positive mood. She had a conversation with [facility] staff. Spent the afternoon working on a schedule for post discharge as she's found the structure here has been very helpful for her. She denies any medication issues. Physical Exam Psychiatric Orientation: alert and oriented x 3 Apperance: appropriately dressed and appropriately groomed Eye Contact: good eye contact Motor Behavior: no abnormal motor movements Speech: + abnormal rate/rhythm/volume of speech (monotone) Affect: euthymic affect Mood: no depressed mood and no anxious mood Thought Process: goal directed thought process and + perseveration Thought Content: reality based without delusions Suicidal Thoughts: denies suicidal thoughts, denies suicidal plan and denies suicidal intent Homicidal Thoughts: denies homicidal thoughts, denies homicidal plan and denies homicidal intent Hallucinations: no auditory hallucinations and no visual hallucinations Cognition: recent memory grossly intact, remote memory grossly intact, attention grossly intact and language grossly intact Estimated Intelligence: consistent with education level Insight: + fair insight Judgment: + limited judgement Vital Signs (Past 24 Hours) Last Vital Signs Temp 36.5 C 09/07/25 06:37 Pulse 50 L 09/07/25 06:37 Resp 16 09/07/25 06:37 BP 98/65 L 09/07/25 06:39 Pulse Ox 98 09/07/25 06:37 O2 Del Method Room Air 09/07/25 06:37 Results & Data ([facility]) Laboratory Results Laboratory Results - last 24 hr 09/07/25 07:27 Sodium 137 Current Inpatient Medications Current Inpatient Medications: Current Inpatient Medications Acetaminophen (Acetaminophen 325 Mg Tab) 650 mg PO Q4H PRN PRN Reason: Headache or Minor Fever Stop: 09/24/25 07:52 Last Admin: 08/27/25 08:24 Dose: 650 mg Al Hydrox/Mg Hydrox/Simethicone (Aluminum/Magnesium Susp 30 Ml Udc) 30 ml PO Q4H PRN PRN Reason: GI Upset Stop: 09/24/25 07:52 Last Admin: 09/01/25 12:08 Dose: 30 ml Aripiprazole (Aripiprazole 15 Mg Tab) 30 mg PO PM PALAK Stop: 09/26/25 20:59 Last Admin: 09/06/25 21:11 Dose: 30 mg Bismuth Subsalicylate (Bismuth Subsalicylate 262 Mg Chew) 2 tab PO Q30M PRN PRN Reason: Loose Stool/Diarrhea Stop: 09/24/25 07:52 Clonidine HCl (Clonidine Hcl 0.1 Mg Tab) 0.1 mg PO HS PALAK Stop: 09/24/25 21:59 Last Admin: 09/06/25 21:14 Dose: 0.1 mg Hydroxyzine HCl (Hydroxyzine Hcl 25 Mg Tab) 50 mg PO HSZ PRN PRN Reason: Insomnia Stop: 09/24/25 07:52 Last Admin: 09/06/25 21:51 Dose: 50 mg Hydroxyzine HCl (Hydroxyzine Hcl 25 Mg Tab) 25 mg PO Q4H PRN PRN Reason: Anxiety Stop: 09/24/25 07:52 Last Admin: 08/28/25 12:35 Dose: 25 mg Lamotrigine (Lamotrigine 25 Mg Tab) 50 mg PO PM PALAK; Protocol Stop: 10/02/25 20:59 Last Admin: 09/06/25 21:12 Dose: 50 mg Magnesium Hydroxide (Magnesium Hydroxide Susp 30 Ml Udc) 30 ml PO DAILY PRN PRN Reason: Constipation Stop: 09/24/25 07:52 Metformin HCl (Metformin Hcl Er 500 Mg Tabcr) 500 mg PO DAILYBD PALAK Stop: 09/26/25 17:14 Last Admin: 09/06/25 17:19 Dose: 500 mg Miscellaneous (Ethynodiol Diac-Eth Estradiol ([place])--Non-Formulary Medication) 1 each PO DAILY PALAK Stop: 09/27/25 08:59 Last Admin: 09/07/25 08:12 Dose: 1 each Olanzapine (Olanzapine 5 Mg Tablet) 5 mg PO BID PRN PRN Reason: Agitation Stop: 09/24/25 08:59 Oxcarbazepine (Oxcarbazepine 150 Mg Tablet) 300 mg PO PM PALAK Stop: 09/26/25 20:59 Last Admin: 09/06/25 21:11 Dose: 300 mg Oxcarbazepine (Oxcarbazepine 150 Mg Tablet) 150 mg PO QAM PALAK Stop: 10/05/25 08:59 Last Admin: 09/07/25 08:12 Dose: 150 mg Sodium Chloride (Sodium Chloride 0.65% Na Soln 45 Ml ([place])) 1 - 2 sprays NA PRN PRN PRN Reason: Nasal Dryness/Congestion Stop: 09/24/25 07:52 Vitamin D (Cholecalciferol 125 Mcg (5,000 Units) Tab) 125 mcg PO QAM PALAK Stop: 09/26/25 08:59 Last Admin: 09/07/25 08:12 Dose: 125 mcg Mental Health & Subst Abuse Tx Psychiatrist Name of Psychiatrist: [address], [place] [address] Psychiatrist's Date Of Appointment With Psychiatric Provider: 11/05/25 Time of Appointment with Psychiatrist: 3pm Psychiatric Appointment Comment: In person Therapist Name of Therapist: Silviano Rodriguez Therapist's Date of Therapist Appointment: 09/16/25 Time of Therapist Appointment: 11AM Therapy Appointment Comment: In Person. [address] , [place] [address]
--- NOTE | 2025-09-08 09:12 | Psychiatric Progress Note ---
Date of Service September 08, 2025 Impression / Recommendations Impression SUMMER SINGH is a 25-year-old woman who currently lives in [place] in an [facility] retirement, has a history of ASD with intellectual disability, mood disorder, PTSD, craniofacial syndrome with a history of multiple prior psychiatric hospitalizations as well as history of self-harm, suicide attempts, and behavioral dysregulation and was admitted on 08/25/25 07:53 on a 302 involuntary commitment for aggressive behavior toward staff, self-harm and disorganization in the context of recent medication non-adherence with lamictal and medication changes. Now on 303 commitment as of 08/27/2025. A: Mood stable, tolerated meeting with her [facility] supports. Discussed use of incentive-based reward system to encourage improved behavioral regulation and healthier coping strategies when limits are set. Tolerating medications, scripts sent to pharmacy in advance given request for bubble packs and to ensure these are ready tomorrow. MNPR due to previous aggression and behavioral dysregulation and poor boundaries with peers at times Overall, I spent a total of 50 minutes on this case including meeting with the patient, reviewing the chart, nursing report, treatment team, orders, and documentation and participation in meeting with her [facility] outpatient team. (1) Aggressive behavior: (2) Suicidal ideation: (3) Autism spectrum disorder with accompanying intellectual disability without language impairment, requiring support: (4) Trauma and stressor-related disorder: Plan 09/08/2025: -Continue current medications and treatment plan 09/07/2025: -Continue current medications and treatment plan 09/06/2025: Continue medications and treatment plan. -Recheck sodium tomorrow due to Trileptal use 09/05/2025: Continue medications and tx plan. 09/04/2025: -Decrease Trileptal to 150mg qAM and continue 300mg HS 09/03/2025: Decrease Trileptal to 150 mg in the morning and continue 300 mg at bedtime 09/02/2025: Increase Trileptal to 300mg BID; Increase Lamotrigine to 50mg QPM 09/01/2025: Continue medications and treatment plan 08/31/2025: Continue medications and treatment plan 08/30/2025: Continue medications and treatment plan 08/29/2025: Continue medications and treatment plan 08/28/2025: Continue medications and treatment plan 08/27/2025: -303 commitment granted -Start metformin ER 500mg daily with dinner 08/26/2025: -Start Trileptal 300mg HS -Start Vit D -303 commitment hearing tomorrow 08/25/2025: The patient was admitted to the [facility] ([facility]) on q15 min checks (behavioral with suicide precautions) for safety. The patient will participate in group, recreational, and milieu therapies and will be offered additional individual and family sessions as clinically appropriate. -Start clonidine 0.1mg HS -Continue abilify 30mg daily -Continue lamictal but now at 25mg HS due to recent non-adherence of unknown duration but seems to be for >4 days based on report of many pills hoarded -Olanzapine 5mg BID po prn for agitation -Fasting lipid panel, HbA1c, Vit D tomorrow AM -Monitor for somatic symptoms of constipation, cramping, pain and offer prn medications as neded -Given the we may need to pursue 303 commitment earlier than usual if [facility] offices will be closed following . -Requesting records from outpatient psychiatry office to review past mood stabilizer and SSRI trials as possible fluoxetine could help with PMDD and would prefer to consider alternative to lamictal given high risks with non-adherence or intermittent adherence -Suicide and homicide precautions -SW to gather collateral and clarify her outpatient supports Inventory Assets Strengths: supportive relationships, resilient Needs: safety and stabilization, medication adjustment, additional coping skills, increased outpatient services Suicide Risk Level Suicide Risk Level: Low (q15 min observation checks) (improved emotional regulation, denies SI, reports positive mood, states comfort with asking staff for support if needed) Risk Factors Assessment Male: No : Yes Do You Have Access To A Gun?: No Health Problems: No Mental Health Diagnoses: Yes Substance Use Disorders: No Previous Attempt: Yes Previous Psychiatric Hospitalization: Yes Protective Factors Assessment Employed: No Supportive Family: Yes Interval History Identifying Information SUMMER SINGH is a 25-year-old woman who currently lives in [place] in an [facility] retirement, has a history of ASD with intellectual disability, mood disorder, PTSD, craniofacial syndrome with a history of multiple prior psychiatric hospitalizations as well as history of self-harm, suicide attempts, and behavioral dysregulation and was admitted on 08/25/25 07:53 on a 302 involuntary commitment for aggressive behavior toward staff, self-harm and disorganization in the context of recent medication non-adherence with lamictal and medication changes. Chief Complaint "Awesome". Review of Systems Sleep Information Total Hours of Sleep: 7 Meal Information Percent Meal Consumed - Breakfast: 75 Percent Meal Consumed - Lunch: 50 Percent Meal Consumed - Dinner: 100 Subjective Subjective Patient was seen & assessed and interval progress reviewed with treatment team. Rated her mood "9" and "hyped". Today states her mood is "awesome". Participated in meeting with LINDA Rogers and her [facility] team (~6 of her coordinators and specialists) to review her progress and address concerns. Discussed recommendation to implement an incentive based reward system, ideally with mystery/surprise component given her impulsivity. She denies any medication side effects nor concerns. Continues to report positive mood in the afternoon. Physical Exam Psychiatric Orientation: alert and oriented x 3 Apperance: appropriately dressed and appropriately groomed Eye Contact: good eye contact Motor Behavior: no abnormal motor movements Speech: + abnormal rate/rhythm/volume of speech (monotone) Affect: euthymic affect Mood: no depressed mood and no anxious mood Thought Process: + circumstantial thought process Thought Content: reality based without delusions Suicidal Thoughts: denies suicidal thoughts, denies suicidal plan and denies suicidal intent Homicidal Thoughts: denies homicidal thoughts, denies homicidal plan and denies homicidal intent Hallucinations: no auditory hallucinations and no visual hallucinations Cognition: recent memory grossly intact, remote memory grossly intact, attention grossly intact and language grossly intact Estimated Intelligence: consistent with education level Insight: + fair insight Judgment: + limited judgement Vital Signs (Past 24 Hours) Last Vital Signs Temp 36.2 C L 09/08/25 06:26 Pulse 76 09/08/25 06:27 Resp 16 09/08/25 06:26 BP 104/70 09/08/25 06:27 Pulse Ox 98 09/07/25 06:37 O2 Del Method Room Air 09/07/25 06:37 Results & Data ([facility]) Current Inpatient Medications Current Inpatient Medications: Current Inpatient Medications Acetaminophen (Acetaminophen 325 Mg Tab) 650 mg PO Q4H PRN PRN Reason: Headache or Minor Fever Stop: 09/24/25 07:52 Last Admin: 08/27/25 08:24 Dose: 650 mg Al Hydrox/Mg Hydrox/Simethicone (Aluminum/Magnesium Susp 30 Ml Udc) 30 ml PO Q4H PRN PRN Reason: GI Upset Stop: 09/24/25 07:52 Last Admin: 09/01/25 12:08 Dose: 30 ml Aripiprazole (Aripiprazole 15 Mg Tab) 30 mg PO PM PALAK Stop: 09/26/25 20:59 Last Admin: 09/07/25 21:27 Dose: 30 mg Bismuth Subsalicylate (Bismuth Subsalicylate 262 Mg Chew) 2 tab PO Q30M PRN PRN Reason: Loose Stool/Diarrhea Stop: 09/24/25 07:52 Clonidine HCl (Clonidine Hcl 0.1 Mg Tab) 0.1 mg PO HS PALAK Stop: 09/24/25 21:59 Last Admin: 09/07/25 21:27 Dose: 0.1 mg Hydroxyzine HCl (Hydroxyzine Hcl 25 Mg Tab) 50 mg PO HSZ PRN PRN Reason: Insomnia Stop: 09/24/25 07:52 Last Admin: 09/06/25 21:51 Dose: 50 mg Hydroxyzine HCl (Hydroxyzine Hcl 25 Mg Tab) 25 mg PO Q4H PRN PRN Reason: Anxiety Stop: 09/24/25 07:52 Last Admin: 08/28/25 12:35 Dose: 25 mg Lamotrigine (Lamotrigine 25 Mg Tab) 50 mg PO PM PALAK; Protocol Stop: 10/02/25 20:59 Last Admin: 09/07/25 21:27 Dose: 50 mg Magnesium Hydroxide (Magnesium Hydroxide Susp 30 Ml Udc) 30 ml PO DAILY PRN PRN Reason: Constipation Stop: 09/24/25 07:52 Metformin HCl (Metformin Hcl Er 500 Mg Tabcr) 500 mg PO DAILYBD PALAK Stop: 09/26/25 17:14 Last Admin: 09/07/25 17:23 Dose: 500 mg Miscellaneous (Ethynodiol Diac-Eth Estradiol ([place])--Non-Formulary Medication) 1 each PO DAILY PALAK Stop: 09/27/25 08:59 Last Admin: 09/08/25 08:48 Dose: 1 each Olanzapine (Olanzapine 5 Mg Tablet) 5 mg PO BID PRN PRN Reason: Agitation Stop: 09/24/25 08:59 Oxcarbazepine (Oxcarbazepine 150 Mg Tablet) 300 mg PO PM PALAK Stop: 09/26/25 20:59 Last Admin: 09/07/25 21:27 Dose: 300 mg Oxcarbazepine (Oxcarbazepine 150 Mg Tablet) 150 mg PO QAM PALAK Stop: 10/05/25 08:59 Last Admin: 09/08/25 08:49 Dose: 150 mg Sodium Chloride (Sodium Chloride 0.65% Na Soln 45 Ml ([place])) 1 - 2 sprays NA PRN PRN PRN Reason: Nasal Dryness/Congestion Stop: 09/24/25 07:52 Vitamin D (Cholecalciferol 125 Mcg (5,000 Units) Tab) 125 mcg PO QAM PALAK Stop: 09/26/25 08:59 Last Admin: 09/08/25 08:49 Dose: 125 mcg Mental Health & Subst Abuse Tx Psychiatrist Name of Psychiatrist: [address] , [place] [address] Psychiatrist's Date Of Appointment With Psychiatric Provider: 11/05/25 Time of Appointment with Psychiatrist: 3pm Psychiatric Appointment Comment: In person Therapist Name of Therapist: Silviano Rodriguez Therapist's Date of Therapist Appointment: 09/16/25 Time of Therapist Appointment: 11AM Therapy Appointment Comment: In Person. [address], [place] [address]
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
== END 2025-09-09 11:11 | disposition home or self-care (01) | DRG 884 ==
LOC: ED 16:58 → SUATTDRO 08-25 07:53 → 3S 08-25 07:53